=== PATIENT | male | born 1950 | race Caucasian/White ===

== ENCOUNTER → 2018-03-05 13:04 | Outpatient (CLI) | payer MEDICARE, SELFPAY ==
[2018-03-05 13:55] LABS: PSA,Total - Annual Screen 1.61 ng/mL (0.00-4.00)
== END ==
PROVIDERS: Family Provider Family Medicine; PCP Family Medicine; Visit Provider Nurse Practitioner Adult Health
DX: Z12.5 Encounter for screening for malignant neoplasm of prostate (principal); R97.20 Elevated prostate specific antigen [PSA]
CPT/HCPCS: 36415; 84153; G0103

== ENCOUNTER 2018-11-14 01:52 | Emergency (ER) | payer MEDICARE, SELFPAY ==
[2018-11-14 01:53] VITALS: BP 188/107; PULSE 59; RESP 18; TEMP 36.1; O2SAT 98; BMI 49.5
--- NOTE | 2018-11-14 02:19 | CT_ITS ---
STUDY: CT ABDOMEN AND PELVIS WITHOUT CONTRAST REASON FOR EXAM: Male, 68 years old. Flank pain and dysuria RADIATION DOSAGE (If Supplied By Facility): CTDIvol = ( 23.74 ) mGy, DLP = ( 1334.72 ) mGycm TECHNIQUE: Transaxial images were obtained from the dome of the diaphragm to the symphysis pubis without oral contrast, and without intravenous contrast. Sagittal and coronal images were reconstructed. Individualized dose optimization techniques were used for this CT. COMPARISON: None. FINDINGS: Evaluation is limited by lack of IV and oral contrast. The visualized lung bases are unremarkable. The visualized portions of the heart are within normal limits. Normal unenhanced liver. Normal unenhanced gallbladder and extrahepatic biliary system. Normal unenhanced spleen. Normal unenhanced pancreas. Normal unenhanced bilateral adrenal glands. There is mild right hydroureter and hydronephrosis with perinephric fatty stranding. There is a 5 mm right UVJ stone. 2 mm nonobstructing left nephrolithiasis. There is a small hiatal hernia. Evidence of prior gastric surgery. Normal unenhanced small intestine. There are multiple colonic diverticula consistent with diverticulosis. There is non-visualization of the appendix. There is diffuse atherosclerotic calcification of the abdominal aorta, without a demonstrated aneurysm. Cannot evaluate for dissection due to lack of IV contrast. Nonspecific subcentimeter short axis mesenteric and retroperitoneal lymph nodes. Bladder is decompressed limiting its evaluation. 5 mm stone at the right UVJ. Prostate is enlarged. Correlate with PSA values and physical exam nonemergent basis. Prostate radiotherapy beads. Small bilateral fat-containing inguinal hernias. There are diffuse degenerative changes of the visualized lumbar spine. Neural foraminal narrowing greatest at L5-S1. Moderate at this level. CT/Abdomen/Pelvis without Cont IMPRESSION: Right UVJ 5 mm stone with mild hydroureter, hydronephrosis and perinephric fatty stranding. Evidence of prior gastric surgery. No CT evidence for diverticulitis. 2 mm nonobstructing left nephrolithiasis. Other findings as discussed above. Electronically Signed: Diallo Hoff, at 3:50 EDT Tel , Service support ,
--- NOTE | 2018-11-14 02:19 | ED.VIS.GEN ---
History of Present Illness Chief Complaint: Flank Pain Informant: Patient Narrative: Stated he awoke with right flank pain at 10 PM. Sharp stabbing pain in his right flank rating around to the front. He is never had a kidney stone. No blood in his urine. He had similar pain yesterday and it went away. He is never had anything like this before. He tried to urinate and have a bowel movement tonight but could not. His last urination was this evening before dinner. Had a normal bowel movement yesterday. Comes in for further evaluation. Associated nausea with one episode of emesis. - Past Medical History (1) Status post total left knee replacement Status: Acute (2) Arthritis Status: Chronic (3) Morbid obesity with BMI of 40.0-44.9, adult Status: Chronic (4) RIKY (obstructive sleep apnea) Status: Chronic Past Medical History - Allergies and Home Meds Allergies/Adverse Reactions: Allergies No Known Allergies Allergy (Verified 11/14/18 01:56) Primary Care Physician: Jaiden Melton MD [Primary Care Provider] - Surgical History: cataract, herniorrhaphy, total hip arthroplasty, tonsillectomy, - - bariatric surgery 2013 Smoking Status: Never smoker Alcohol: None Drugs: None - Family History Maternal Family History: Reports: No pertinent history Paternal Family History: Reports: No pertinent history Review of Systems General: Denies: Chills, Fever, Sweats Eyes: Denies: Visual changes - bilaterally, Diplopia ENT: Denies: Rhinorrhea, Sore throat Cardiovascular: Denies: Chest pain, Palpitations Respiratory: Denies: Dyspnea, Cough, Dyspnea on exertion Gastrointestinal: Reports: Nausea, Vomiting. Denies: Abdominal pain, Diarrhea, Melena, Hematochezia Genitourinary: Denies: Dysuria, Hematuria, Frequency Musculoskeletal: Reports: Back pain. Denies: Extremity Pain Skin: Denies: Rash, Wounds Neurological: Denies: Headache, Weakness, Numbness Physical Exam Vital Signs/Narrative: Vital Signs Temp Pulse Resp BP Pulse Ox 11/14/18 01:53 97.0 F L 59 L 18 188/107 H 98 General: Well nourished, Well developed, No Acute Distress Head: Normocephalic, Atraumatic Eyes: Perrl, EOMI ENT: Moist mucous membranes, No rhinorrhea Neck: Supple, Nontender Cardiovascular: Regular rate, Regular rhythm, No murmurs Respiratory: No distress, CTA bilaterally, Chest nontender Abdomen: Soft, Nontender, Nondistended, Normal bowel sounds Back: Nontender, Normal Inspection Extremities: Nontender, No edema Skin: Normal color, No rash Neurological: Alert, Oriented x3, Cranial nerves II-XII grossly intact, Normal Strength, Normal Sensation Psychological: Normal affect, Normal Mood Diagnostic/Tx/Re-eval - Medical Decision Making Patient given IV fluids, Zofran Toradol morphine. Lab work and CT flank obtained lab work shows no acute abnormalities other than blood in his urine. CT shows a 5 mm kidney stone with mid ureter location in mild hydro-. Patient given a second dose of morphine and his pain is much better. He will be discharged to follow-up with Dr. Horvath he will be given Flomax, Percocet, Zofran. He will return if he worsens. He should pass this given the fact that is 5 mm ED Disposition - Plan for ED Patient: Disposition: EMPLOYEE [facility] - NA Diagnosis: Kidney stone on right side Instructions: ED Stone Renal W Colic Prescriptions: Oxycodone HCl/Acetaminophen [Percocet 5/325] 1 - 2 tab PO Q6H PRN PRN 3 Days #12 tab PRN Reason: Pain Ondansetron [Zofran Odt] 4 mg PO Q8H PRN PRN #10 tab PRN Reason: Nausea Tamsulosin HCl [Flomax] 0.4 mg PO DAILY #7 cap Referrals: Arash Horvath MD [STAFF PHYSICIAN] -
[2018-11-14 02:36] LABS: Bacteria 0 SEEN /hpf (None Seen); Mucous, Urine 0 SEEN /hpf (<or=2+)
[2018-11-14 02:37] LABS: Color, Urine Yellow (Yellow); Glucose, Dipstick Normal (Normal); Ketone-Dipstick Negative (Negative); Leukocyte Esterase-Dipstick 100 /ul (Negative); Nitrite-Dipstick Negative (Negative); Occult Blood-Urine 250 /ul (Negative); Protein-Dipstick 15 mg/dl (Negative); Specific Gravity, Urine 1.015 (1.002-1.030); Urine Bilirubin Dipstick Negative (Negative); Urine Clarity Clear (Clear); Urine Urobilinogen Normal (Normal)
[2018-11-14 02:40] LABS: Absolute Lymphocyte Count 1.44 X10^3/ul (0.83-4.51); Absolute Neutrophil Count 5.9 X10^3/uL (2.0-7.7); Basophil# 0.04 X10^3/uL; Basophil% 0.5 % (0-1); Eosinophil# 0.26 X10^3/uL; Hematocrit 43.7 % (40-54); Hemoglobin 14.5 g/dl (13.0-16.5); Lymphocyte # 1.44 X10^3/ul (4.0); Lymphocyte % 16.6 % (19-41); Mean Corp Hgb Conc 33.2 g/gl (32-36); Mean Corpuscular Hgb 29.2 pg (27.0-32.0); Mean Corpuscular Volume 87.9 fL (80-94); Mean Platelet Vol. 9.9 fl (6.2-12.0); Monocyte# 1.04 X10^3/uL; Neutrophil # 5.91 X10^3/uL (2.7-7.7); Neutrophil % 67.8 % (47-70); Platelet Count 227 K/mm3 (150-450); RBC Distribution Width CV 14.1 % (11.6-14.6); Red Blood Count 4.97 M/mm3 (4.6-6.2); White Blood Count 8.7 K/mm3 (4.4-11.0)
[2018-11-14 02:41] LABS: POSITIVE COUNT NO; POSITIVE DIFFERENTIAL NO; POSITIVE MORPHOLOGY NO
[2018-11-14] MEDS: 0.9% Normal Saline 1,000 ML 250 ML IV (02:41)
[2018-11-14] MEDS: Ketorolac 30 MG/ML Syringe IV (02:42)
[2018-11-14] MEDS: Ondansetron 4 MG/2 ML Vial IV (02:42)
[2018-11-14 02:43] LABS: Red Blood Cells-Urine 0-5 SEEN /hpf (0-5); Squamous Epithelial Cells - UA 0-5 SEEN /hpf (0-5); White Blood Cells 5-10 SEEN /hpf (0-5)
[2018-11-14] MEDS: Morphine 4 MG/ML Syringe IV ×2 (02:44→04:02)
[2018-11-14 02:48] LABS: Anion Gap 8 (5-15); BUN 14 mg/dL (7-18); BUN/Creat Ratio 11.6 RATIO (10-20); Calcium,Total 8.6 mg/dL (8.5-10.1); Chloride 111 mmol/L (98-107); Creatinine, Serum 1.21 mg/dL (0.70-1.30); EST Glomerular Filtration Rate 64 mL/min (>60); Est Glom Filt Rate - Afr Amer 77 mL/min (>60); Estimated Creatinine Clearance 63.96 ml/min; Glucose 128 mg/dL (74-106); Sodium Level 143 mmol/L (136-145)
[2018-11-14] MEDS: HYDROcodone Bitartrate/Apap 5/325 Tablet PO (04:42)
[2018-11-14 04:48] VITALS: BP 123/88; PULSE 76; RESP 22; O2SAT 97
--- NOTE | 2018-11-14 04:48 | ED.RN ---
THIS NURSE REVIEWED D/C INSTRUCTIONS WITH PT AND VISITOR. PT VERBALIZED UNDERSTANDING OF INSTRUCTIONS. IV D/C. IV CATHETER INTACT. PT TOLERATED WELL. PT DENIES FURTHER NEEDS OR QUESTIONS AT THIS TIME. PT AMBULATES FROM ROOM ON OWN WITHOUT ASSISTANCE FROM STAFF
== END 2018-11-14 04:49 | disposition home or self-care (01) ==
PROVIDERS: Emergency Provider Emergency Medicine; Family Provider Family Medicine; PCP Family Medicine
DX: N13.2 Hydronephrosis with renal and ureteral calculous obstruction (principal); E66.01 Morbid (severe) obesity due to excess calories; Z68.42 Body mass index [BMI] 45.0-49.9, adult; Z98.84 Bariatric surgery status
CPT/HCPCS: 74176; 80048; 81001; 85025; 96361; 96374; 96375; 96376; 99282; J7030; A4216; J2405

== ENCOUNTER → 2020-03-22 | Outpatient (CLI) | payer MEDICARE, SELFPAY ==
[2020-03-22 14:46] LABS: PSA,Total- Diagnostic 0.99 ng/mL (0.0-4.0)
== END | disposition home or self-care (01) ==
LOC: LAB 14:13
PROVIDERS: PCP Family Medicine; Referring Provider Urology; Visit Provider Urology
DX: C61 Malignant neoplasm of prostate (principal)
CPT/HCPCS: 36415; 84153

== ENCOUNTER 2020-04-06 09:32 | Outpatient (RCR) | payer MEDICARE, SELFPAY ==
[2020-04-06 10:15] VITALS: BP 184/102; PULSE 73; RESP 18; TEMP 36.2; BMI 49.5
--- NOTE | 2020-04-06 12:24 | PCM.CONHBO ---
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 Status: Acute Current Visit: Yes Code(s): L59.8 - Other specified disorders of the skin and subcutaneous tissue related to radiation (2) Prostate cancer Status: Acute Current Visit: Yes Code(s): C61 - Malignant neoplasm of prostate (3) Fecal incontinence due to anorectal disorder Status: Acute Current Visit: Yes Code(s): R15.9 - Full incontinence of feces; K62.89 - Other specified diseases of anus and rectum (4) Late effect of radiation Status: Acute Current Visit: Yes Code(s): T66.XXXS - Radiation sickness, unspecified, sequela History of Present Illness Date of Service: 04/06/20 Presenting Chief Complaint: Here for consultation for hyperbaric chamber for his 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 Patient received 44 treatments of radiation therapy to his prostate 5 years ago and now has developed incontinence of stool and sometimes bleeds. Patient is hesitant for HBO only because he has claustrophobia type tendencies but is willing to try Past Medical History Chronic Problems RIKY (obstructive sleep apnea) (Chronic) Arthritis (Chronic) Morbid obesity with BMI of 40.0-44.9, adult (Chronic) Allergies/Adverse Reactions: Allergies No Known Allergies Allergy (Verified 11/14/18 01:56) Home Medications: Ambulatory Orders Medication Instructions Recorded Acetaminophen [Tylenol Extra 500 mg PO Q6H PRN PRN 04/06/20 Strength] Famotidine/Ca Carb/Mag Hydrox 1 ea PO DAILY PRN PRN 04/06/20 [Pepcid Complete Tablet Chew] Maternal Family History: No pertinent history Paternal Family History: No pertinent history Smoking Status: Never smoker Review of Systems Constitutional: Denies: Chills, Fever Eyes: Denies: Blurred vision, Drainage, Pain HEENT: Denies: Difficulty Hearing, Difficulty Swallowing, Sore Throat, Visual Changes Cardiovascular: Denies: Chest Pain, Palpitations, Syncope Respiratory: Denies: Cough, Shortness of Breath Gastrointestinal: Denies: Abdominal Pain, Nausea, Vomiting Genitourinary: Denies: Dysuria, Frequency Musculoskeletal: Denies: Joint Pain, Muscle pain Skin: Denies: Jaundice, Rash Neurological: Denies: Balance problems, Change in Speech, Difficulty swallowing, Focal weakness Psychiatric: Denies: Anxiety, Depression Endocrine: Denies: Change in Body Habitus Hematologic/ Lymphatic: Denies: Adenopathy - Physical Exam Vital Signs Temp Pulse Resp BP 97.2 F L 73 18 184/102 H 04/06/20 10:15 04/06/20 10:15 04/06/20 10:15 04/06/20 10:15 General: Oriented x3, Cooperative, Well developed HEENT: Atraumatic, PERRLA Oral: Moist Mucosa Neck: Supple, No JVD Lungs: Clear to auscultation, Normal air movement Cardiovascular: Regular rate, Regular Rhythm Abdomen: Bowel Sounds Present, Soft, Non Tender, No Hepato-splenomegaly, Obese Extremities: No clubbing, No edema Skin: No rashes Musculoskeletal: No Tenderness to Palpation of Joints or Extremities Lymphatic: No Cervical, Supraclavicular, or Inguinal Adenopathy Neurological: Cranial nerves II-XII grossly intact, Neuro grossly intact Psych/Mental Status: Normal Affect, Appropriate, Alert and oriented to time, place, person, mood and affect Assessment/Plan Active Problems 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 Hyperbaric Oxygen Therapy would be an essential adjunct in the resolution and treatment of this patient's presenting problem. This patient has sufficient physiologic and psychological stamina to undergo the rigors of hyperbaric oxygen therapy. As such, I recommend the following: Hyperbaric Oxygen Treatments at 2.0 SD in 100% Oxygen for 90 minutes per treatment, for [] treatments. I have discussed the possible benefits of hyperbaric oxygen therapy with this patient. I have also presented and described the risks, including: air gas embolism, pneumothorax, central nervous system and pulmonary oxygen toxicity, flash pulmonary edema, hypoglycemia, reversible visual refractive changes, ear and sinus elyssa-trauma, and confinement anxiety. The patient has verbalized understanding of these risks, and is still wanting to undergo hyperbaric oxygen therapy. The patient understands the significant time and transportation commitment involved in daily treatments of up to two hours duration and has stated that they are willing to commit to this therapy. 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
== END 2020-04-06 23:59 ==
LOC: WC 09:32
PROVIDERS: PCP Family Medicine; Referring Provider Urology; Visit Provider Nurse Practitioner
DX: K62.89 Other specified diseases of anus and rectum (principal); K62.7 Radiation proctitis; G47.33 Obstructive sleep apnea (adult) (pediatric); E66.01 Morbid (severe) obesity due to excess calories; M19.90 Unspecified osteoarthritis, unspecified site; Z68.41 Body mass index [BMI] 40.0-44.9, adult; Z92.3 Personal history of irradiation
CPT/HCPCS: 99203; G0463

== ENCOUNTER → 2020-04-14 13:50 | Outpatient (RCR) | payer MEDICARE, SELFPAY ==
[2020-04-06 10:15] VITALS: BMI 49.5
--- NOTE | 2020-04-14 13:55 | RAD_ITS ---
HISTORY: hyperbonic treatments ADDITIONAL HISTORY: None provided. COMPARISON: None EXAMINATION/TECHNIQUE: XR Chest 2 Views Number of images including paperwork: 2 FINDINGS: LUNGS AND PLEURA: No consolidation, mass or pleural effusion. CARDIAC SILHOUETTE: Unremarkable. MEDIASTINUM AND ANMOL: Aortic calcification and tortuosity. UPPER ABDOMEN: Unremarkable. SKELETON AND SOFT TISSUES: No acute findings. Degenerative changes. OTHER DEVICES AND HARDWARE: None. RAD/Chest PA and Lateral IMPRESSION: No acute cardiopulmonary abnormality. at 2220 Reported and signed by: Gin Ho MD Electronically Signed: Gin Ho MD at 22:20 EDT Tel , Service support ,
--- NOTE | 2020-04-14 14:04 | EKG12_ITS ---
Test Reason : HYPERBARIS OXYGEN Blood Pressure : / mmHG Vent. Rate : 069 BPM Atrial Rate : 069 BPM P-R Int : 184 ms QRS Dur : 088 ms QT Int : 422 ms P-R-T Axes : 008 006 -18 degrees QTc Int : 452 ms Normal sinus rhythm Normal ECG Confirmed by DENISE JOHNSON, KENRICK ([id number]), international editorial producer GRACE PHILLIPS ([id number]) on 04/19/2020 8:11:22 AM Referred By: BILLY BUI Confirmed By:KNERICK WALKER MD
== END ==
LOC: RAD 13:50
PROVIDERS: PCP Family Medicine; Visit Provider Nurse Practitioner
DX: Z01.818 Encounter for other preprocedural examination (principal); K62.89 Other specified diseases of anus and rectum; K62.7 Radiation proctitis
CPT/HCPCS: 36415; 71046; 80053; 85025; 93005

== ENCOUNTER 2020-05-06 13:00 | Outpatient (RCR) | payer MEDICARE, SELFPAY ==
[2020-04-07 00:51] VITALS: BP 184/102; PULSE 73; RESP 18; TEMP 36.2
--- NOTE | 2020-04-13 10:34 | WC ---
Called [place] to get prior authorization for EKG. CPT code provided and since Susan is considered a non-participating member with his insurance, I notified Carmella Love NP regarding this matter who was willing to vouch for this and be the providing clinician for the EKG order. Her NPI number was given the the insurance company for approval. There was no prior authorization (reference # [id number]) needed as long as patient received EKG at [facility]. Patient was called and told to proceed with the EKG, labs and chest xray at [facility] so the results can get faxed to his insurance company to start the pre-approval for HBOT. Patient verbalized understanding.
[2020-04-14 14:13] LABS: Absolute Lymphocyte Count 1.29 X10^3/uL (0.83-4.51); Absolute Neutrophil Count 5.8 X10^3/uL (2.0-7.7); Basophil# 0.05 X10^3/uL; Basophil% 0.6 % (0-1); Eosinophil# 0.27 X10^3/uL; Eosinophils% 3.3 % (0-5); Hematocrit 42.4 % (40-54); Hemoglobin 13.6 g/dL (13.0-16.5); Lymphocyte # 1.29 X10^3/ul (4.0); Lymphocyte % 15.8 % (19-41); Mean Corp Hgb Conc 32.1 g/dL (32-36); Mean Corpuscular Hgb 28.4 pg (27.0-32.0); Mean Corpuscular Volume 88.5 fL (80-94); Mean Platelet Vol. 9.5 fl (6.2-12.0); Monocyte# 0.81 X10^3/uL; Monocyte% 9.9 % (0-10); NRBC Flagged by Analyzer 0 % (0-5); Neutrophil # 5.75 X10^3/uL (2.7-7.7); Neutrophil % 70.2 % (47-70); Platelet Count 254 K/mm3 (150-450); RBC Distribution Width CV 13.8 % (11.6-14.6); RBC Distribution Width SD 44.8 fl (35.1-43.9); Red Blood Count 4.79 M/mm3 (4.6-6.2); White Blood Count 8.2 K/mm3 (4.4-11.0)
[2020-04-14 14:37] LABS: AST(SGOT) 25 U/L (15-37); Alanine Aminotransfer ALT/SGPT 25 U/L (16-61); Albumin, Serum 3.3 g/dL (3.2-5.0); Alkaline Phosphatase 69 U/L (45-117); Anion Gap 6 (5-15); BUN 11 mg/dL (7-18); BUN/Creat Ratio 13.3 RATIO (10-20); Calcium,Total 8.4 mg/dL (8.5-10.1); Chloride 110 mmol/L (98-107); Creatinine, Serum 0.82 mg/dL (0.70-1.30); EST Glomerular Filtration Rate 99 mL/min (>60); Est Glom Filt Rate - Afr Amer 119 mL/min (>60); Globulin 3.3 g/dL (2.2-4.2); Glucose 96 mg/dL (74-106); Potassium 3.4 mmol/L (3.5-5.1); Protein, Total 6.6 g/dL (6.4-8.2); Sodium Level 143 mmol/L (136-145)
[2020-05-02 14:46] VITALS: BP 155/97; BP 174/118; PULSE 57; PULSE 76; RESP 16; RESP 18; TEMP 36.3; TEMP 36.4
--- NOTE | 2020-05-02 14:58 | PCM.HBO.PN ---
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 Progress: Today's session represents the 1st session of hyperbaric oxygen therapy, of an expected 30 such treatments. Tolerance of hyperbaric oxygen therapy: Hyperbaric oxygen therapy was administered as per the facility's protocol. Hyperbaric oxygen therapy was administered for 90 minutes at 2 sweta, with no air breaks. Upon emergence from the hyperbaric oxygen chamber the patient had no complaints or complications. The patient's vital signs remained stable. The patient was discharged in good condition. His pre-and post- HBO blood sugars are recorded elsewhere. Past Medical History Chronic Problems RIKY (obstructive sleep apnea) (Chronic) Arthritis (Chronic) Morbid obesity with BMI of 40.0-44.9, adult (Chronic) Allergies/Adverse Reactions: Allergies No Known Allergies Allergy (Verified 11/14/18 01:56) Home Medications: Ambulatory Orders Medication Instructions Recorded Acetaminophen [Tylenol Extra 500 mg PO Q6H PRN PRN 04/06/20 Strength] Famotidine/Ca Carb/Mag Hydrox 1 ea PO DAILY PRN PRN 04/06/20 [Pepcid Complete Tablet Chew] Maternal Family History: No pertinent history Paternal Family History: No pertinent history Smoking Status: Never smoker Physical Exam Vital Signs Temp Pulse Resp BP 97.6 F L 76 18 174/118 H 05/02/20 14:46 05/02/20 14:46 05/02/20 14:46 05/02/20 14:46 General: Alert, Oriented x3, Cooperative, No apparent distress HEENT: Atraumatic, Normocephalic, TM's Clear Lungs: Clear to auscultation, Normal air movement, No rhonchi, No wheeze, No rales Cardiovascular: Regular rate, Regular Rhythm Psych/Mental Status: Normal Affect, Appropriate Assessment/Plan The patient appears to be tolerating hyperbaric oxygen therapy well, which will be continued as per the patient's medical plan. Treatment Course Number Number of HBO Treatments 30 Ordered Treatment Course Number 1 Treatment # 1 Chamber # [id number] Chamber Type Monoplace Other - Detail Soft Tissue Radionecrosis ( Yes: Rectum specify site in comment) Treatment Plan SD (Atmospheric Absolute) 2 Number of Minutes 90 Number of Air Breaks 0
--- NOTE | 2020-05-03 13:07 | PCM.HBO.PN ---
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 Progress: Today's session represents the 2nd session of hyperbaric oxygen therapy, of an expected 30 such treatments. Tolerance of hyperbaric oxygen therapy: Hyperbaric oxygen therapy was administered as per the facility's protocol. Hyperbaric oxygen therapy was administered for 90 minutes at 2 sweta, with no air breaks. Upon emergence from the hyperbaric oxygen chamber the patient had no complaints or complications. The patient's vital signs remained stable. The patient was discharged in good condition. His pre-and post- HBO blood sugars are recorded elsewhere. Past Medical History Chronic Problems RIKY (obstructive sleep apnea) (Chronic) Arthritis (Chronic) Morbid obesity with BMI of 40.0-44.9, adult (Chronic) Allergies/Adverse Reactions: Allergies No Known Allergies Allergy (Verified 11/14/18 01:56) Home Medications: Ambulatory Orders Medication Instructions Recorded Acetaminophen [Tylenol Extra 500 mg PO Q6H PRN PRN 04/06/20 Strength] Famotidine/Ca Carb/Mag Hydrox 1 ea PO DAILY PRN PRN 04/06/20 [Pepcid Complete Tablet Chew] Maternal Family History: No pertinent history Paternal Family History: No pertinent history Smoking Status: Never smoker Physical Exam Vital Signs Temp Pulse Resp BP 97.6 F L 76 18 174/118 H 05/02/20 14:46 05/02/20 14:46 05/02/20 14:46 05/02/20 14:46 General: Alert, Oriented x3, Cooperative HEENT: Atraumatic, TM's Clear Lungs: Clear to auscultation, Normal air movement Cardiovascular: Regular rate, Regular Rhythm Psych/Mental Status: Normal Affect, Alert and oriented to time, place, person, mood and affect Assessment/Plan The patient appears to be tolerating hyperbaric oxygen therapy well, which will be continued as per the patient's medical plan. Treatment Course Number Number of HBO Treatments 30 Ordered Treatment Course Number 1 Treatment # 1 Chamber # [id number] Chamber Type Monoplace Other - Detail Soft Tissue Radionecrosis ( Yes: Rectum specify site in comment) Treatment Plan SD (Atmospheric Absolute) 2 Number of Minutes 90 Number of Air Breaks 0 [id number]
[2020-05-03 15:41] VITALS: BP 154/96; BP 183/99; PULSE 55; PULSE 73; RESP 16; TEMP 35.9; TEMP 36.4
[2020-05-05 14:09] VITALS: BP 172/105; BP 176/103; PULSE 70; RESP 18; TEMP 36.1
--- NOTE | 2020-05-05 15:44 | PCM.HBO.PN ---
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 Progress: Today's session represents the 3rd session of hyperbaric oxygen therapy, of an expected 30 such treatments. Tolerance of hyperbaric oxygen therapy: Hyperbaric oxygen therapy was administered as per the facility's protocol. Hyperbaric oxygen therapy was administered for 90 minutes at 2 sweta, with no air breaks. Upon emergence from the hyperbaric oxygen chamber the patient had no complaints or complications. The patient's vital signs remained stable. The patient was discharged in good condition. His pre-and post- HBO blood sugars are recorded elsewhere. Past Medical History Chronic Problems RIKY (obstructive sleep apnea) (Chronic) Arthritis (Chronic) Morbid obesity with BMI of 40.0-44.9, adult (Chronic) Allergies/Adverse Reactions: Allergies No Known Allergies Allergy (Verified 11/14/18 01:56) Home Medications: Ambulatory Orders Medication Instructions Recorded Acetaminophen [Tylenol Extra 500 mg PO Q6H PRN PRN 04/06/20 Strength] Famotidine/Ca Carb/Mag Hydrox 1 ea PO DAILY PRN PRN 04/06/20 [Pepcid Complete Tablet Chew] Maternal Family History: No pertinent history Paternal Family History: No pertinent history Smoking Status: Never smoker Physical Exam Vital Signs Temp Pulse Resp BP 96.9 F L 70 18 176/103 H 05/05/20 14:09 05/05/20 14:09 05/05/20 14:09 05/05/20 14:09 General: Alert, Oriented x3, Cooperative, No apparent distress, Well developed, Well nourished HEENT: Atraumatic, PERRLA, EOMI, Normocephalic Lungs: Normal air movement Psych/Mental Status: Normal Affect, Appropriate, Alert and oriented to time, place, person, mood and affect Assessment/Plan The patient appears to be tolerating hyperbaric oxygen therapy well, which will be continued as per the patient's medical plan. Treatment Course Number Number of HBO Treatments 30 Ordered Treatment Course Number 1 Treatment # 2 Chamber # 2 Chamber Type Monoplace Other - Detail Soft Tissue Radionecrosis ( Rectum specify site in comment) Treatment Plan SD (Atmospheric Absolute) 2 Number of Minutes 90 Number of Air Breaks 0
--- NOTE | 2020-05-06 14:21 | PCM.HBO.PN ---
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 Progress: Today's session represents the 4th session of hyperbaric oxygen therapy, of an expected 30 such treatments. Tolerance of hyperbaric oxygen therapy: Hyperbaric oxygen therapy was administered as per the facility's protocol. Hyperbaric oxygen therapy was administered for 90 minutes at 2 sweta, with no air breaks. Upon emergence from the hyperbaric oxygen chamber the patient had no complaints or complications. The patient's vital signs remained stable. The patient was discharged in good condition. His pre-and post- HBO blood sugars are recorded elsewhere. Past Medical History Chronic Problems RIKY (obstructive sleep apnea) (Chronic) Arthritis (Chronic) Morbid obesity with BMI of 40.0-44.9, adult (Chronic) Allergies/Adverse Reactions: Allergies No Known Allergies Allergy (Verified 11/14/18 01:56) Home Medications: Ambulatory Orders Medication Instructions Recorded Acetaminophen [Tylenol Extra 500 mg PO Q6H PRN PRN 04/06/20 Strength] Famotidine/Ca Carb/Mag Hydrox 1 ea PO DAILY PRN PRN 04/06/20 [Pepcid Complete Tablet Chew] Maternal Family History: No pertinent history Paternal Family History: No pertinent history Smoking Status: Never smoker Physical Exam Vital Signs Temp Pulse Resp BP 96.9 F L 70 18 176/103 H 05/05/20 14:09 05/05/20 14:09 05/05/20 14:09 05/05/20 14:09 General: Alert, Cooperative, No apparent distress HEENT: Atraumatic, Normocephalic, TM's Clear Lungs: Clear to auscultation, Normal air movement, No rhonchi, No wheeze, No rales Cardiovascular: Regular rate, Regular Rhythm Psych/Mental Status: Normal Affect, Appropriate Assessment/Plan The patient appears to be tolerating hyperbaric oxygen therapy well, which will be continued as per the patient's medical plan. Treatment Course Number Number of HBO Treatments 30 Ordered Treatment Course Number 1 Treatment # 2 Chamber # 2 Chamber Type Monoplace Other - Detail Soft Tissue Radionecrosis ( Rectum specify site in comment) Treatment Plan SD (Atmospheric Absolute) 2 Number of Minutes 90 Number of Air Breaks 0
[2020-05-06 17:28] VITALS: BP 140/85; BP 148/95; PULSE 55; PULSE 67; RESP 18; TEMP 36.1; TEMP 36.4
== END 2020-05-07 23:59 ==
LOC: WC 13:00
PROVIDERS: Nurse Practitioner; PCP Family Medicine; Referring Provider Urology; Visit Provider Family Medicine
DX: L59.8 Other specified disorders of the skin and subcutaneous tissue related to radiation (principal); Y84.2 Radiological procedure and radiotherapy as the cause of abnormal reaction of the patient, or of later complication, without mention of misadventure at the time of the procedure; M19.90 Unspecified osteoarthritis, unspecified site; E66.01 Morbid (severe) obesity due to excess calories; G47.33 Obstructive sleep apnea (adult) (pediatric); Z68.41 Body mass index [BMI] 40.0-44.9, adult
CPT/HCPCS: 36415; 80053; 85025; 99183; G0277

== ENCOUNTER 2020-06-06 08:00 | Outpatient (RCR) | payer MEDICARE, SELFPAY ==
[2020-05-08 00:35] VITALS: BP 140/85; PULSE 67; RESP 18; TEMP 36.1
--- NOTE | 2020-05-09 10:14 | PCM.HBO.PN ---
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 Progress: Today's session represents the 5th session of hyperbaric oxygen therapy, of an expected 30 such treatments. Tolerance of hyperbaric oxygen therapy: Hyperbaric oxygen therapy was administered as per the facility's protocol. Hyperbaric oxygen therapy was administered for 90 minutes at 2 sweta, with no air breaks. Upon emergence from the hyperbaric oxygen chamber the patient had no complaints or complications. The patient's vital signs remained stable. The patient was discharged in good condition. His pre-and post- HBO blood sugars are recorded elsewhere. Past Medical History Chronic Problems RIKY (obstructive sleep apnea) (Chronic) Arthritis (Chronic) Morbid obesity with BMI of 40.0-44.9, adult (Chronic) Allergies/Adverse Reactions: Allergies No Known Allergies Allergy (Verified 11/14/18 01:56) Home Medications: Ambulatory Orders Medication Instructions Recorded Acetaminophen [Tylenol Extra 500 mg PO Q6H PRN PRN 04/06/20 Strength] Famotidine/Ca Carb/Mag Hydrox 1 ea PO DAILY PRN PRN 04/06/20 [Pepcid Complete Tablet Chew] Maternal Family History: No pertinent history Paternal Family History: No pertinent history Smoking Status: Never smoker Physical Exam Vital Signs Temp Pulse Resp BP 96.9 F L 67 18 140/85 H 05/08/20 00:35 05/08/20 00:35 05/08/20 00:35 05/08/20 00:35 General: Alert, Oriented x3, Cooperative, No apparent distress HEENT: Atraumatic, TM's Clear Lungs: Clear to auscultation, Normal air movement Cardiovascular: Regular rate, Regular Rhythm Psych/Mental Status: Normal Affect, Appropriate, Alert and oriented to time, place, person, mood and affect Assessment/Plan Treatment Course Number Treatment Course Number 1 Treatment # 5 Other - Detail Soft Tissue Radionecrosis ( Yes specify site in comment)
[2020-05-09 12:49] VITALS: BP 151/91; BP 168/101; PULSE 51; PULSE 64; RESP 16; RESP 18; TEMP 35.8; TEMP 36
[2020-05-10 10:23] VITALS: BP 133/78; BP 160/89; PULSE 54; PULSE 66; RESP 16; TEMP 35.8; TEMP 36.1
--- NOTE | 2020-05-10 14:27 | PCM.HBO.PN ---
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 Progress: Today's session represents the 6th session of hyperbaric oxygen therapy, of an expected 30 such treatments. Tolerance of hyperbaric oxygen therapy: Hyperbaric oxygen therapy was administered as per the facility's protocol. Hyperbaric oxygen therapy was administered for 90 minutes at 2 sweta, with no air breaks. Upon emergence from the hyperbaric oxygen chamber the patient had no complaints or complications. The patient's vital signs remained stable. The patient was discharged in good condition. His pre-and post- HBO blood sugars are recorded elsewhere. Past Medical History Chronic Problems RIKY (obstructive sleep apnea) (Chronic) Arthritis (Chronic) Morbid obesity with BMI of 40.0-44.9, adult (Chronic) Allergies/Adverse Reactions: Allergies No Known Allergies Allergy (Verified 11/14/18 01:56) Home Medications: Ambulatory Orders Medication Instructions Recorded Acetaminophen [Tylenol Extra 500 mg PO Q6H PRN PRN 04/06/20 Strength] Famotidine/Ca Carb/Mag Hydrox 1 ea PO DAILY PRN PRN 04/06/20 [Pepcid Complete Tablet Chew] Maternal Family History: No pertinent history Paternal Family History: No pertinent history Smoking Status: Never smoker Physical Exam Vital Signs Temp Pulse Resp BP 96.5 F L 66 16 160/89 H 05/10/20 10:23 05/10/20 10:23 05/10/20 10:23 05/10/20 10:23 General: Alert, Oriented x3, Cooperative, No apparent distress, Well developed, Well nourished HEENT: Atraumatic, PERRLA, EOMI, Normocephalic Lungs: Normal air movement Psych/Mental Status: Normal Affect, Appropriate, Alert and oriented to time, place, person, mood and affect Assessment/Plan The patient appears to be tolerating hyperbaric oxygen therapy well, which will be continued as per the patient's medical plan. Treatment Course Number Number of HBO Treatments 30 Ordered Treatment Course Number 1 Treatment # 6 Chamber # 2 Chamber Type Monoplace Other - Detail Soft Tissue Radionecrosis ( Yes: rectum specify site in comment) Treatment Plan SD (Atmospheric Absolute) 2 Number of Minutes 90 Number of Air Breaks 0
[2020-05-11 10:29] VITALS: BP 151/86; BP 158/77; PULSE 53; PULSE 66; RESP 18; TEMP 36.1; TEMP 36.4
--- NOTE | 2020-05-11 12:13 | PCM.HBO.PN ---
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 Progress: Today's session represents the 7th session of hyperbaric oxygen therapy, of an expected 30 such treatments. Tolerance of hyperbaric oxygen therapy: Hyperbaric oxygen therapy was administered as per the facility's protocol. Hyperbaric oxygen therapy was administered for 90 minutes at 2 sweta, with no air breaks. Upon emergence from the hyperbaric oxygen chamber the patient had no complaints or complications. The patient's vital signs remained stable. The patient was discharged in good condition. His pre-and post- HBO blood sugars are recorded elsewhere. Past Medical History Chronic Problems RIKY (obstructive sleep apnea) (Chronic) Arthritis (Chronic) Morbid obesity with BMI of 40.0-44.9, adult (Chronic) Allergies/Adverse Reactions: Allergies No Known Allergies Allergy (Verified 11/14/18 01:56) Home Medications: Ambulatory Orders Medication Instructions Recorded Acetaminophen [Tylenol Extra 500 mg PO Q6H PRN PRN 04/06/20 Strength] Famotidine/Ca Carb/Mag Hydrox 1 ea PO DAILY PRN PRN 04/06/20 [Pepcid Complete Tablet Chew] Maternal Family History: No pertinent history Paternal Family History: No pertinent history Smoking Status: Never smoker Physical Exam Vital Signs Temp Pulse Resp BP 97.0 F L 66 18 158/77 H 05/11/20 10:29 05/11/20 10:29 05/11/20 10:29 05/11/20 10:29 Assessment/Plan The patient appears to be tolerating hyperbaric oxygen therapy well, which will be continued as per the patient's medical plan. Treatment Course Number Number of HBO Treatments 30 Ordered Treatment Course Number 1 Treatment # 7 Chamber # [id number] Chamber Type Monoplace Other - Detail Soft Tissue Radionecrosis ( Yes specify site in comment) Treatment Plan SD (Atmospheric Absolute) 2.0 Number of Minutes 90 Number of Air Breaks 0
[2020-05-12 08:32] VITALS: BP 168/93; BP 175/97; PULSE 55; PULSE 63; RESP 16; RESP 18; TEMP 35.5; TEMP 36
--- NOTE | 2020-05-12 13:08 | PCM.HBO.PN ---
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 Progress: Today's session represents the 8th session of hyperbaric oxygen therapy, of an expected 30 such treatments. Tolerance of hyperbaric oxygen therapy: Hyperbaric oxygen therapy was administered as per the facility's protocol. Hyperbaric oxygen therapy was administered for 90 minutes at 2 sweta, with no air breaks. Upon emergence from the hyperbaric oxygen chamber the patient had no complaints or complications. The patient's vital signs remained stable. The patient was discharged in good condition. His pre-and post- HBO blood sugars are recorded elsewhere. Past Medical History Chronic Problems RIKY (obstructive sleep apnea) (Chronic) Arthritis (Chronic) Morbid obesity with BMI of 40.0-44.9, adult (Chronic) Allergies/Adverse Reactions: Allergies No Known Allergies Allergy (Verified 11/14/18 01:56) Home Medications: Ambulatory Orders Medication Instructions Recorded Acetaminophen [Tylenol Extra 500 mg PO Q6H PRN PRN 04/06/20 Strength] Famotidine/Ca Carb/Mag Hydrox 1 ea PO DAILY PRN PRN 04/06/20 [Pepcid Complete Tablet Chew] Maternal Family History: No pertinent history Paternal Family History: No pertinent history Smoking Status: Never smoker Physical Exam Vital Signs Temp Pulse Resp BP 96 F L 63 18 175/97 H 05/12/20 08:32 05/12/20 08:32 05/12/20 08:32 05/12/20 08:32 General: Alert, Oriented x3, Cooperative, No apparent distress HEENT: Atraumatic, Normocephalic Lungs: Normal air movement Psych/Mental Status: Normal Affect Assessment/Plan The patient appears to be tolerating hyperbaric oxygen therapy well, which will be continued as per the patient's medical plan. Treatment Course Number Number of HBO Treatments 30 Ordered Treatment Course Number 1 Treatment # 8 Chamber # [id number] Chamber Type Monoplace Other - Detail Soft Tissue Radionecrosis ( Yes specify site in comment) Treatment Plan SD (Atmospheric Absolute) 2 Number of Minutes 90 Number of Air Breaks 0 HBO Supervision
[2020-05-13 10:29] VITALS: BP 148/74; BP 153/86; PULSE 51; PULSE 62; RESP 18; TEMP 35.9; TEMP 36.1
--- NOTE | 2020-05-13 10:38 | PCM.HBO.PN ---
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 Progress: Today's session represents the 9th session of hyperbaric oxygen therapy, of an expected 30 such treatments. Tolerance of hyperbaric oxygen therapy: Hyperbaric oxygen therapy was administered as per the facility's protocol. Hyperbaric oxygen therapy was administered for 90 minutes at 2 sweta, with no air breaks. Upon emergence from the hyperbaric oxygen chamber the patient had no complaints or complications. The patient's vital signs remained stable. The patient was discharged in good condition. His pre-and post- HBO blood sugars are recorded elsewhere. Past Medical History Chronic Problems RIKY (obstructive sleep apnea) (Chronic) Arthritis (Chronic) Morbid obesity with BMI of 40.0-44.9, adult (Chronic) Allergies/Adverse Reactions: Allergies No Known Allergies Allergy (Verified 11/14/18 01:56) Home Medications: Ambulatory Orders Medication Instructions Recorded Acetaminophen [Tylenol Extra 500 mg PO Q6H PRN PRN 04/06/20 Strength] Famotidine/Ca Carb/Mag Hydrox 1 ea PO DAILY PRN PRN 04/06/20 [Pepcid Complete Tablet Chew] Maternal Family History: No pertinent history Paternal Family History: No pertinent history Smoking Status: Never smoker Physical Exam Vital Signs Temp Pulse Resp BP 96.7 F L 62 18 153/86 H 05/13/20 10:29 05/13/20 10:29 05/13/20 10:29 05/13/20 10:29 General: Alert, Oriented x3, Cooperative, No apparent distress Psych/Mental Status: Normal Affect, Appropriate Assessment/Plan The patient appears to be tolerating hyperbaric oxygen therapy well, which will be continued as per the patient's medical plan. Treatment Course Number Number of HBO Treatments 30 Ordered Treatment Course Number 1 Treatment # 9 Chamber # 2 Chamber Type Monoplace Other - Detail Soft Tissue Radionecrosis ( Yes specify site in comment) Treatment Plan SD (Atmospheric Absolute) 2 Number of Minutes 90 Number of Air Breaks 0
[2020-05-16 08:36] VITALS: BP 159/92; BP 195/95; PULSE 56; PULSE 66; RESP 16; TEMP 35.9
--- NOTE | 2020-05-16 08:53 | PCM.HBO.PN ---
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 Progress: Today's session represents the 10th session of hyperbaric oxygen therapy, of an expected 30 such treatments. Tolerance of hyperbaric oxygen therapy: Hyperbaric oxygen therapy was administered as per the facility's protocol. Hyperbaric oxygen therapy was administered for 90 minutes at 2 sweta, with no air breaks. Upon emergence from the hyperbaric oxygen chamber the patient had no complaints or complications. The patient's vital signs remained stable. The patient was discharged in good condition. His pre-and post- HBO blood sugars are recorded elsewhere. Past Medical History Chronic Problems RIKY (obstructive sleep apnea) (Chronic) Arthritis (Chronic) Morbid obesity with BMI of 40.0-44.9, adult (Chronic) Allergies/Adverse Reactions: Allergies No Known Allergies Allergy (Verified 11/14/18 01:56) Home Medications: Ambulatory Orders Medication Instructions Recorded Acetaminophen [Tylenol Extra 500 mg PO Q6H PRN PRN 04/06/20 Strength] Famotidine/Ca Carb/Mag Hydrox 1 ea PO DAILY PRN PRN 04/06/20 [Pepcid Complete Tablet Chew] Maternal Family History: No pertinent history Paternal Family History: No pertinent history Smoking Status: Never smoker Physical Exam Vital Signs Temp Pulse Resp BP 96.6 F L 66 16 195/95 H 05/16/20 08:36 05/16/20 08:36 05/16/20 08:36 05/16/20 08:36 General: Alert, Oriented x3, Cooperative, No apparent distress HEENT: Atraumatic, TM's Clear Lungs: Clear to auscultation, Normal air movement Cardiovascular: Regular rate, Regular Rhythm Psych/Mental Status: Normal Affect, Appropriate, Alert and oriented to time, place, person, mood and affect Assessment/Plan Treatment Course Number Number of HBO Treatments 30 Ordered Treatment Course Number 1 Treatment # 10 Chamber # [id number] Chamber Type Monoplace Other - Detail Soft Tissue Radionecrosis ( Yes: rectum specify site in comment) Treatment Plan SD (Atmospheric Absolute) 2 Number of Minutes 90 Number of Air Breaks 0
[2020-05-17 11:22] VITALS: BP 150/82; BP 156/91; PULSE 55; PULSE 61; RESP 16; RESP 18; TEMP 35.8
--- NOTE | 2020-05-17 14:14 | PCM.HBO.PN ---
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 Progress: Today's session represents the 11th session of hyperbaric oxygen therapy, of an expected 30 such treatments. Tolerance of hyperbaric oxygen therapy: Hyperbaric oxygen therapy was administered as per the facility's protocol. Hyperbaric oxygen therapy was administered for 90 minutes at 2 sweta, with no air breaks. Upon emergence from the hyperbaric oxygen chamber the patient had no complaints or complications. The patient's vital signs remained stable. The patient was discharged in good condition. Past Medical History Chronic Problems RIKY (obstructive sleep apnea) (Chronic) Arthritis (Chronic) Morbid obesity with BMI of 40.0-44.9, adult (Chronic) Allergies/Adverse Reactions: Allergies No Known Allergies Allergy (Verified 11/14/18 01:56) Home Medications: Ambulatory Orders Medication Instructions Recorded Acetaminophen [Tylenol Extra 500 mg PO Q6H PRN PRN 04/06/20 Strength] Famotidine/Ca Carb/Mag Hydrox 1 ea PO DAILY PRN PRN 04/06/20 [Pepcid Complete Tablet Chew] Maternal Family History: No pertinent history Paternal Family History: No pertinent history Smoking Status: Never smoker Physical Exam Vital Signs Temp Pulse Resp BP 96.4 F L 61 18 156/91 H 05/17/20 11:22 05/17/20 11:22 05/17/20 11:22 05/17/20 11:22 General: Alert, Oriented x3, Cooperative, No apparent distress, Well developed, Well nourished HEENT: Atraumatic, PERRLA, EOMI, Normocephalic Lungs: Normal air movement Psych/Mental Status: Normal Affect, Appropriate, Alert and oriented to time, place, person, mood and affect Assessment/Plan The patient appears to be tolerating hyperbaric oxygen therapy well, which will be continued as per the patient's medical plan. Treatment Course Number Number of HBO Treatments 30 Ordered Treatment Course Number 1 Treatment # 11 Chamber # 2 Chamber Type Monoplace Other - Detail Soft Tissue Radionecrosis ( Yes: rectum specify site in comment) Treatment Plan SD (Atmospheric Absolute) 2 Number of Minutes 90 Number of Air Breaks 0
[2020-05-18 08:27] VITALS: BP 164/96; BP 178/90; PULSE 54; PULSE 60; RESP 17; RESP 18; TEMP 36.1
--- NOTE | 2020-05-18 10:52 | PCM.HBO.PN ---
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 Progress: Today's session represents the 12th session of hyperbaric oxygen therapy, of an expected 30 such treatments. Tolerance of hyperbaric oxygen therapy: Hyperbaric oxygen therapy was administered as per the facility's protocol. Hyperbaric oxygen therapy was administered for 90 minutes at 2 sweta, with no air breaks. Upon emergence from the hyperbaric oxygen chamber the patient had no complaints or complications. The patient's vital signs remained stable. The patient was discharged in good condition. Past Medical History Chronic Problems RIKY (obstructive sleep apnea) (Chronic) Arthritis (Chronic) Morbid obesity with BMI of 40.0-44.9, adult (Chronic) Allergies/Adverse Reactions: Allergies No Known Allergies Allergy (Verified 11/14/18 01:56) Home Medications: Ambulatory Orders Medication Instructions Recorded Acetaminophen [Tylenol Extra 500 mg PO Q6H PRN PRN 04/06/20 Strength] Famotidine/Ca Carb/Mag Hydrox 1 ea PO DAILY PRN PRN 04/06/20 [Pepcid Complete Tablet Chew] Maternal Family History: No pertinent history Paternal Family History: No pertinent history Smoking Status: Never smoker Physical Exam Vital Signs Temp Pulse Resp BP 96.9 F L 60 18 178/90 H 05/18/20 08:27 05/18/20 08:27 05/18/20 08:27 05/18/20 08:27 Assessment/Plan The patient appears to be tolerating hyperbaric oxygen therapy well, which will be continued as per the patient's medical plan. Treatment Course Number Number of HBO Treatments 30 Ordered Treatment Course Number 1 Treatment # 11 Chamber # 2 Chamber Type Monoplace Other - Detail Soft Tissue Radionecrosis ( Yes: rectum specify site in comment) Treatment Plan SD (Atmospheric Absolute) 2 Number of Minutes 90 Number of Air Breaks 0
--- NOTE | 2020-05-19 11:17 | PCM.HBO.PN ---
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 Progress: Today's session represents the 13th session of hyperbaric oxygen therapy, of an expected 30 such treatments. Tolerance of hyperbaric oxygen therapy: Hyperbaric oxygen therapy was administered as per the facility's protocol. Hyperbaric oxygen therapy was administered for 90 minutes at 2 sweta, with no air breaks. Upon emergence from the hyperbaric oxygen chamber the patient had no complaints or complications. The patient's vital signs remained stable. The patient was discharged in good condition. Past Medical History Chronic Problems RIKY (obstructive sleep apnea) (Chronic) Arthritis (Chronic) Morbid obesity with BMI of 40.0-44.9, adult (Chronic) Allergies/Adverse Reactions: Allergies No Known Allergies Allergy (Verified 11/14/18 01:56) Home Medications: Ambulatory Orders Medication Instructions Recorded Acetaminophen [Tylenol Extra 500 mg PO Q6H PRN PRN 04/06/20 Strength] Famotidine/Ca Carb/Mag Hydrox 1 ea PO DAILY PRN PRN 04/06/20 [Pepcid Complete Tablet Chew] Maternal Family History: No pertinent history Paternal Family History: No pertinent history Smoking Status: Never smoker Physical Exam Vital Signs Temp Pulse Resp BP 96.9 F L 60 18 178/90 H 05/18/20 08:27 05/18/20 08:27 05/18/20 08:27 05/18/20 08:27 General: Alert, Oriented x3, Cooperative, No apparent distress HEENT: Atraumatic, Normocephalic Lungs: Normal air movement Psych/Mental Status: Normal Affect Assessment/Plan The patient appears to be tolerating hyperbaric oxygen therapy well, which will be continued as per the patient's medical plan. Treatment Course Number Number of HBO Treatments 30 Ordered Treatment Course Number 1 Treatment # 13 Chamber # 2 Chamber Type Monoplace Other - Detail Soft Tissue Radionecrosis ( Yes: rectum specify site in comment) Treatment Plan SD (Atmospheric Absolute) 2 Number of Minutes 90 Number of Air Breaks 0 HBO Supervision
[2020-05-19 11:41] VITALS: BP 154/100; BP 161/92; PULSE 51; PULSE 60; RESP 18; TEMP 36; TEMP 36.7
--- NOTE | 2020-05-20 08:45 | PCM.HBO.PN ---
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 Progress: Today's session represents the 14th session of hyperbaric oxygen therapy, of an expected 30 such treatments. Tolerance of hyperbaric oxygen therapy: Hyperbaric oxygen therapy was administered as per the facility's protocol. Hyperbaric oxygen therapy was administered for 90 minutes at 2 sweta, with no air breaks. Upon emergence from the hyperbaric oxygen chamber the patient had no complaints or complications. The patient's vital signs remained stable. The patient was discharged in good condition. Past Medical History Chronic Problems RIKY (obstructive sleep apnea) (Chronic) Arthritis (Chronic) Morbid obesity with BMI of 40.0-44.9, adult (Chronic) Allergies/Adverse Reactions: Allergies No Known Allergies Allergy (Verified 11/14/18 01:56) Home Medications: Ambulatory Orders Medication Instructions Recorded Acetaminophen [Tylenol Extra 500 mg PO Q6H PRN PRN 04/06/20 Strength] Famotidine/Ca Carb/Mag Hydrox 1 ea PO DAILY PRN PRN 04/06/20 [Pepcid Complete Tablet Chew] Maternal Family History: No pertinent history Paternal Family History: No pertinent history Smoking Status: Never smoker Physical Exam Vital Signs Temp Pulse Resp BP 96.8 F L 60 18 161/92 H 05/19/20 11:41 05/19/20 11:41 05/19/20 11:41 05/19/20 11:41 General: Alert, Oriented x3, Cooperative, No apparent distress HEENT: Atraumatic, TM's Clear Lungs: Clear to auscultation, Normal air movement Cardiovascular: Regular rate, Regular Rhythm Psych/Mental Status: Normal Affect, Appropriate, Alert and oriented to time, place, person, mood and affect Assessment/Plan Treatment Course Number Number of HBO Treatments 30 Ordered Treatment Course Number 1 Treatment # 14 Chamber # 2 Chamber Type Monoplace Other - Detail Soft Tissue Radionecrosis ( Yes: rectum specify site in comment) Treatment Plan SD (Atmospheric Absolute) 2 Number of Minutes 90 Number of Air Breaks 0
[2020-05-20 10:47] VITALS: BP 147/91; BP 152/86; PULSE 53; PULSE 60; RESP 16; RESP 17; TEMP 35.5; TEMP 35.8
--- NOTE | 2020-05-23 08:25 | PCM.HBO.PN ---
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 Progress: Today's session represents the 15th session of hyperbaric oxygen therapy, of an expected 30 such treatments. Tolerance of hyperbaric oxygen therapy: Hyperbaric oxygen therapy was administered as per the facility's protocol. Hyperbaric oxygen therapy was administered for 90 minutes at 2 sweta, with no air breaks. Upon emergence from the hyperbaric oxygen chamber the patient had no complaints or complications. The patient's vital signs remained stable. The patient was discharged in good condition. Past Medical History Chronic Problems RIKY (obstructive sleep apnea) (Chronic) Arthritis (Chronic) Morbid obesity with BMI of 40.0-44.9, adult (Chronic) Allergies/Adverse Reactions: Allergies No Known Allergies Allergy (Verified 11/14/18 01:56) Home Medications: Ambulatory Orders Medication Instructions Recorded Acetaminophen [Tylenol Extra 500 mg PO Q6H PRN PRN 04/06/20 Strength] Famotidine/Ca Carb/Mag Hydrox 1 ea PO DAILY PRN PRN 04/06/20 [Pepcid Complete Tablet Chew] Maternal Family History: No pertinent history Paternal Family History: No pertinent history Smoking Status: Never smoker Physical Exam Vital Signs Temp Pulse Resp BP 95.9 F L 60 16 152/86 H 05/20/20 10:47 05/20/20 10:47 05/20/20 10:47 05/20/20 10:47 General: Alert, Oriented x3, Cooperative, No apparent distress HEENT: Atraumatic, TM's Clear Lungs: Clear to auscultation, Normal air movement Cardiovascular: Regular rate, Regular Rhythm Psych/Mental Status: Normal Affect, Appropriate, Alert and oriented to time, place, person, mood and affect Assessment/Plan Treatment Course Number Number of HBO Treatments 30 Ordered Treatment Course Number 1 Treatment # 15 Chamber # 2 Chamber Type Monoplace Other - Detail Soft Tissue Radionecrosis ( Yes: rectum specify site in comment) Treatment Plan SD (Atmospheric Absolute) 2 Number of Minutes 90 Number of Air Breaks 0
[2020-05-23 08:36] VITALS: BP 144/77; BP 145/81; PULSE 51; PULSE 70; RESP 16; TEMP 35.7; TEMP 36.7
[2020-05-24 08:48] VITALS: BP 157/92; BP 159/76; PULSE 57; PULSE 68; RESP 16; RESP 18; TEMP 36.6; TEMP 36.7
--- NOTE | 2020-05-24 14:50 | PCM.HBO.PN ---
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 Progress: Today's session represents the 16th session of hyperbaric oxygen therapy, of an expected 30 such treatments. Tolerance of hyperbaric oxygen therapy: Hyperbaric oxygen therapy was administered as per the facility's protocol. Hyperbaric oxygen therapy was administered for 90 minutes at 2 sweta, with no air breaks. Upon emergence from the hyperbaric oxygen chamber the patient had no complaints or complications. Upon emergence from the hyperbaric chamber, the patient's vital signs remained stable. The patient was discharged in good condition. Past Medical History Chronic Problems RIKY (obstructive sleep apnea) (Chronic) Arthritis (Chronic) Morbid obesity with BMI of 40.0-44.9, adult (Chronic) Allergies/Adverse Reactions: Allergies No Known Allergies Allergy (Verified 11/14/18 01:56) Home Medications: Ambulatory Orders Medication Instructions Recorded Acetaminophen [Tylenol Extra 500 mg PO Q6H PRN PRN 04/06/20 Strength] Famotidine/Ca Carb/Mag Hydrox 1 ea PO DAILY PRN PRN 04/06/20 [Pepcid Complete Tablet Chew] Maternal Family History: No pertinent history Paternal Family History: No pertinent history Smoking Status: Never smoker Physical Exam Vital Signs Temp Pulse Resp BP 98.0 F 68 18 157/92 H 05/24/20 08:48 05/24/20 08:48 05/24/20 08:48 05/24/20 08:48 General: Alert, Oriented x3, Cooperative, No apparent distress, Well developed, Well nourished HEENT: Atraumatic, PERRLA, EOMI, Normocephalic Lungs: Normal air movement Psych/Mental Status: Normal Affect, Appropriate, Alert and oriented to time, place, person, mood and affect Assessment/Plan Patient appears to be tolerating hyperbaric oxygen therapy well, which will continue as per the patient's medical plan. Treatment Course Number Number of HBO Treatments 40 Ordered Treatment Course Number 1 Treatment # 16 Chamber # 2 Chamber Type Monoplace Other - Detail Soft Tissue Radionecrosis ( Yes: rectum specify site in comment) Treatment Plan SD (Atmospheric Absolute) 2 Number of Minutes 90 Number of Air Breaks 0
[2020-05-25 08:29] VITALS: BP 143/73; BP 189/92; PULSE 72; PULSE 74; RESP 15; RESP 18; TEMP 35.8; TEMP 35.9
--- NOTE | 2020-05-25 11:20 | PCM.HBO.PN ---
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 Progress: Today's session represents the 17th session of hyperbaric oxygen therapy, of an expected 30 such treatments. Tolerance of hyperbaric oxygen therapy: Hyperbaric oxygen therapy was administered as per the facility's protocol. Hyperbaric oxygen therapy was administered for 90 minutes at 2 sweta, with no air breaks. Upon emergence from the hyperbaric oxygen chamber the patient had no complaints or complications. Upon emergence from the hyperbaric chamber, the patient's vital signs remained stable. The patient was discharged in good condition. Past Medical History Chronic Problems RIKY (obstructive sleep apnea) (Chronic) Arthritis (Chronic) Morbid obesity with BMI of 40.0-44.9, adult (Chronic) Allergies/Adverse Reactions: Allergies No Known Allergies Allergy (Verified 11/14/18 01:56) Home Medications: Ambulatory Orders Medication Instructions Recorded Acetaminophen [Tylenol Extra 500 mg PO Q6H PRN PRN 04/06/20 Strength] Famotidine/Ca Carb/Mag Hydrox 1 ea PO DAILY PRN PRN 04/06/20 [Pepcid Complete Tablet Chew] Maternal Family History: No pertinent history Paternal Family History: No pertinent history Smoking Status: Never smoker Physical Exam Vital Signs Temp Pulse Resp BP 96.7 F L 72 18 189/92 H 05/25/20 08:29 05/25/20 08:29 05/25/20 08:29 05/25/20 08:29 Assessment/Plan Patient appears to be tolerating hyperbaric oxygen therapy well, which will continue as per the patient's medical plan. Treatment Course Number Number of HBO Treatments 40 Ordered Treatment Course Number 1 Treatment # 17 Chamber # 2 Chamber Type Monoplace Other - Detail Soft Tissue Radionecrosis ( Yes: rectum specify site in comment) Treatment Plan SD (Atmospheric Absolute) 2 Number of Minutes 90 Number of Air Breaks 0
[2020-05-26 08:24] VITALS: BP 146/84; BP 147/87; PULSE 54; PULSE 59; RESP 16; RESP 18; TEMP 36.7; TEMP 36.8
--- NOTE | 2020-05-26 12:22 | PCM.HBO.PN ---
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 Progress: Today's session represents the 18th session of hyperbaric oxygen therapy, of an expected 30 such treatments. Tolerance of hyperbaric oxygen therapy: Hyperbaric oxygen therapy was administered as per the facility's protocol. Hyperbaric oxygen therapy was administered for 90 minutes at 2 sweta, with no air breaks. Upon emergence from the hyperbaric oxygen chamber the patient had no complaints or complications. Upon emergence from the hyperbaric chamber, the patient's vital signs remained stable. The patient was discharged in good condition. Past Medical History Chronic Problems RIKY (obstructive sleep apnea) (Chronic) Arthritis (Chronic) Morbid obesity with BMI of 40.0-44.9, adult (Chronic) Allergies/Adverse Reactions: Allergies No Known Allergies Allergy (Verified 11/14/18 01:56) Home Medications: Ambulatory Orders Medication Instructions Recorded Acetaminophen [Tylenol Extra 500 mg PO Q6H PRN PRN 04/06/20 Strength] Famotidine/Ca Carb/Mag Hydrox 1 ea PO DAILY PRN PRN 04/06/20 [Pepcid Complete Tablet Chew] Maternal Family History: No pertinent history Paternal Family History: No pertinent history Smoking Status: Never smoker Physical Exam Vital Signs Temp Pulse Resp BP 98.3 F 59 L 18 147/87 H 05/26/20 08:24 05/26/20 08:24 05/26/20 08:24 05/26/20 08:24 General: Alert, Oriented x3, Cooperative, No apparent distress HEENT: Atraumatic, Normocephalic Lungs: Normal air movement Psych/Mental Status: Normal Affect Assessment/Plan Patient appears to be tolerating hyperbaric oxygen therapy well, which will continue as per the patient's medical plan. Treatment Course Number Number of HBO Treatments 40 Ordered Treatment Course Number 1 Treatment # 18 Chamber # 2 Chamber Type Monoplace Other - Detail Soft Tissue Radionecrosis ( Yes: rectum specify site in comment) Treatment Plan SD (Atmospheric Absolute) 2 Number of Minutes 90 Number of Air Breaks 0 HBO Supervision
[2020-05-27 10:58] VITALS: BP 148/77; BP 165/91; PULSE 54; PULSE 61; RESP 16; TEMP 35.8
--- NOTE | 2020-05-27 12:46 | PCM.HBO.PN ---
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 Progress: Today's session represents the 19th session of hyperbaric oxygen therapy, of an expected 30 such treatments. Tolerance of hyperbaric oxygen therapy: Hyperbaric oxygen therapy was administered as per the facility's protocol. Hyperbaric oxygen therapy was administered for 90 minutes at 2 sweta, with no air breaks. Upon emergence from the hyperbaric oxygen chamber the patient had no complaints or complications. Upon emergence from the hyperbaric chamber, the patient's vital signs remained stable. The patient was discharged in good condition. Past Medical History Chronic Problems RIKY (obstructive sleep apnea) (Chronic) Arthritis (Chronic) Morbid obesity with BMI of 40.0-44.9, adult (Chronic) Allergies/Adverse Reactions: Allergies No Known Allergies Allergy (Verified 11/14/18 01:56) Home Medications: Ambulatory Orders Medication Instructions Recorded Acetaminophen [Tylenol Extra 500 mg PO Q6H PRN PRN 04/06/20 Strength] Famotidine/Ca Carb/Mag Hydrox 1 ea PO DAILY PRN PRN 04/06/20 [Pepcid Complete Tablet Chew] Maternal Family History: No pertinent history Paternal Family History: No pertinent history Smoking Status: Never smoker Physical Exam Vital Signs Temp Pulse Resp BP 96.4 F L 61 16 165/91 H 05/27/20 10:58 05/27/20 10:58 05/27/20 10:58 05/27/20 10:58 General: Alert, Cooperative, No apparent distress HEENT: Atraumatic, Normocephalic, TM's Clear Lungs: Normal air movement, No rhonchi, No wheeze, No rales, Diminished Cardiovascular: Regular rate, Regular Rhythm Psych/Mental Status: Normal Affect, Appropriate Assessment/Plan Patient appears to be tolerating hyperbaric oxygen therapy well, which will continue as per the patient's medical plan. Treatment Course Number Number of HBO Treatments 40 Ordered Treatment Course Number 1 Treatment # 19 Chamber # 2 Chamber Type Monoplace Other - Detail Soft Tissue Radionecrosis ( Yes: rectum specify site in comment) Treatment Plan SD (Atmospheric Absolute) 2 Number of Minutes 90 Number of Air Breaks 0
--- NOTE | 2020-05-30 08:36 | PCM.HBO.PN ---
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 Progress: Today's session represents the 20th session of hyperbaric oxygen therapy, of an expected 30 such treatments. Tolerance of hyperbaric oxygen therapy: Hyperbaric oxygen therapy was administered as per the facility's protocol. Hyperbaric oxygen therapy was administered for 90 minutes at 2 sweta, with no air breaks. Upon emergence from the hyperbaric oxygen chamber the patient had no complaints or complications. Upon emergence from the hyperbaric chamber, the patient's vital signs remained stable. The patient was discharged in good condition. Past Medical History Chronic Problems RIKY (obstructive sleep apnea) (Chronic) Arthritis (Chronic) Morbid obesity with BMI of 40.0-44.9, adult (Chronic) Allergies/Adverse Reactions: Allergies No Known Allergies Allergy (Verified 11/14/18 01:56) Home Medications: Ambulatory Orders Medication Instructions Recorded Acetaminophen [Tylenol Extra 500 mg PO Q6H PRN PRN 04/06/20 Strength] Famotidine/Ca Carb/Mag Hydrox 1 ea PO DAILY PRN PRN 04/06/20 [Pepcid Complete Tablet Chew] Maternal Family History: No pertinent history Paternal Family History: No pertinent history Smoking Status: Never smoker Physical Exam Vital Signs Temp Pulse Resp BP 96.4 F L 61 16 165/91 H 05/27/20 10:58 05/27/20 10:58 05/27/20 10:58 05/27/20 10:58 General: Alert, Oriented x3, Cooperative, No apparent distress HEENT: Atraumatic, TM's Clear Lungs: Clear to auscultation, Normal air movement Cardiovascular: Regular rate, Regular Rhythm Psych/Mental Status: Normal Affect, Appropriate, Alert and oriented to time, place, person, mood and affect Assessment/Plan Treatment Course Number Number of HBO Treatments 40 Ordered Treatment Course Number 1 Treatment # 20 Chamber # 2 Chamber Type Monoplace Other - Detail Soft Tissue Radionecrosis ( Yes: rectum specify site in comment) Treatment Plan SD (Atmospheric Absolute) 2 Number of Minutes 90 Number of Air Breaks 0
[2020-05-30 08:48] VITALS: BP 135/76; BP 138/74; PULSE 51; PULSE 66; RESP 16; RESP 17; TEMP 36.3; TEMP 36.4
[2020-05-31 08:20] VITALS: BP 142/80; BP 152/87; PULSE 53; PULSE 64; RESP 16; RESP 17; TEMP 36.2
--- NOTE | 2020-05-31 13:20 | PCM.HBO.PN ---
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 Progress: Today's session represents the 21st session of hyperbaric oxygen therapy, of an expected 30 such treatments. Tolerance of hyperbaric oxygen therapy: Hyperbaric oxygen therapy was administered as per the facility's protocol. Hyperbaric oxygen therapy was administered for 90 minutes at 2 sweta, with no air breaks. Upon emergence from the hyperbaric oxygen chamber the patient had no complaints or complications. Upon emergence from the hyperbaric chamber, the patient's vital signs remained stable. The patient was discharged in good condition. Past Medical History Chronic Problems RIKY (obstructive sleep apnea) (Chronic) Arthritis (Chronic) Morbid obesity with BMI of 40.0-44.9, adult (Chronic) Allergies/Adverse Reactions: Allergies No Known Allergies Allergy (Verified 11/14/18 01:56) Home Medications: Ambulatory Orders Medication Instructions Recorded Acetaminophen [Tylenol Extra 500 mg PO Q6H PRN PRN 04/06/20 Strength] Famotidine/Ca Carb/Mag Hydrox 1 ea PO DAILY PRN PRN 04/06/20 [Pepcid Complete Tablet Chew] Maternal Family History: No pertinent history Paternal Family History: No pertinent history Smoking Status: Never smoker Physical Exam Vital Signs Temp Pulse Resp BP 97.1 F L 64 17 152/87 H 05/31/20 08:20 05/31/20 08:20 05/31/20 08:20 05/31/20 08:20 General: Alert, Oriented x3, Cooperative, No apparent distress, Well developed, Well nourished HEENT: Atraumatic, PERRLA, EOMI, Normocephalic Lungs: Normal air movement Psych/Mental Status: Normal Affect, Appropriate, Alert and oriented to time, place, person, mood and affect Assessment/Plan The patient appears to be tolerating hyperbaric oxygen therapy well, which will be continued as per the patient's medical plan. Treatment Course Number Number of HBO Treatments 40 Ordered Treatment Course Number 1 Treatment # 21 Chamber # 2 Chamber Type Monoplace Other - Detail Soft Tissue Radionecrosis ( Yes: rectum specify site in comment) Treatment Plan SD (Atmospheric Absolute) 2 Number of Minutes 90 Number of Air Breaks 0
[2020-06-01 08:34] VITALS: BP 101/72; BP 145/75; PULSE 62; PULSE 74; RESP 16; RESP 17; TEMP 35.7; TEMP 36.4
--- NOTE | 2020-06-01 10:30 | PCM.HBO.PN ---
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 Progress: Today's session represents the 22nd session of hyperbaric oxygen therapy, of an expected 30 such treatments. Tolerance of hyperbaric oxygen therapy: Hyperbaric oxygen therapy was administered as per the facility's protocol. Hyperbaric oxygen therapy was administered for 90 minutes at 2 sweta, with no air breaks. Upon emergence from the hyperbaric oxygen chamber the patient had no complaints or complications. Upon emergence from the hyperbaric chamber, the patient's vital signs remained stable. The patient was discharged in good condition. Past Medical History Chronic Problems RIKY (obstructive sleep apnea) (Chronic) Arthritis (Chronic) Morbid obesity with BMI of 40.0-44.9, adult (Chronic) Allergies/Adverse Reactions: Allergies No Known Allergies Allergy (Verified 11/14/18 01:56) Home Medications: Ambulatory Orders Medication Instructions Recorded Acetaminophen [Tylenol Extra 500 mg PO Q6H PRN PRN 04/06/20 Strength] Famotidine/Ca Carb/Mag Hydrox 1 ea PO DAILY PRN PRN 04/06/20 [Pepcid Complete Tablet Chew] Maternal Family History: No pertinent history Paternal Family History: No pertinent history Smoking Status: Never smoker Physical Exam Vital Signs Temp Pulse Resp BP 97.5 F L 62 17 145/75 H 06/01/20 08:34 06/01/20 08:34 06/01/20 08:34 06/01/20 08:34 Assessment/Plan The patient appears to be tolerating hyperbaric oxygen therapy well, which will be continued as per the patient's medical plan. Treatment Course Number Number of HBO Treatments 40 Ordered Treatment Course Number 1 Treatment # 20 Chamber # 2 Chamber Type Monoplace Other - Detail Soft Tissue Radionecrosis ( Yes: rectum specify site in comment) Treatment Plan SD (Atmospheric Absolute) 2 Number of Minutes 90 Number of Air Breaks 0
[2020-06-03 09:57] VITALS: BP 143/78; BP 156/86; PULSE 52; PULSE 60; RESP 17; TEMP 35.3; TEMP 35.8
--- NOTE | 2020-06-03 10:52 | PCM.HBO.PN ---
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 Progress: Today's session represents the 23rd session of hyperbaric oxygen therapy, of an expected 30 such treatments. Tolerance of hyperbaric oxygen therapy: Hyperbaric oxygen therapy was administered as per the facility's protocol. Hyperbaric oxygen therapy was administered for 90 minutes at 2 sweta, with no air breaks. Upon emergence from the hyperbaric oxygen chamber the patient had no complaints or complications. Upon emergence from the hyperbaric chamber, the patient's vital signs remained stable. The patient was discharged in good condition. Past Medical History Chronic Problems RIKY (obstructive sleep apnea) (Chronic) Arthritis (Chronic) Morbid obesity with BMI of 40.0-44.9, adult (Chronic) Allergies/Adverse Reactions: Allergies No Known Allergies Allergy (Verified 11/14/18 01:56) Home Medications: Ambulatory Orders Medication Instructions Recorded Acetaminophen [Tylenol Extra 500 mg PO Q6H PRN PRN 04/06/20 Strength] Famotidine/Ca Carb/Mag Hydrox 1 ea PO DAILY PRN PRN 04/06/20 [Pepcid Complete Tablet Chew] Maternal Family History: No pertinent history Paternal Family History: No pertinent history Smoking Status: Never smoker Physical Exam Vital Signs Temp Pulse Resp BP 95.5 F L 60 17 156/86 H 06/03/20 09:57 06/03/20 09:57 06/03/20 09:57 06/03/20 09:57 General: Alert, Oriented x3, Cooperative, No apparent distress Psych/Mental Status: Normal Affect, Appropriate Assessment/Plan The patient appears to be tolerating hyperbaric oxygen therapy well, which will be continued as per the patient's medical plan. Treatment Course Number Number of HBO Treatments 40 Ordered Treatment Course Number 1 Treatment # 23 Chamber # 2 Chamber Type Monoplace Other - Detail Soft Tissue Radionecrosis ( Yes: rectum specify site in comment) Treatment Plan SD (Atmospheric Absolute) 2 Number of Minutes 90 Number of Air Breaks 0
[2020-06-06 08:42] VITALS: BP 156/86; BP 159/91; PULSE 56; PULSE 65; RESP 18; TEMP 36.1; TEMP 36.6
--- NOTE | 2020-06-06 08:46 | PCM.HBO.PN ---
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 Progress: Today's session represents the 24th session of hyperbaric oxygen therapy, of an expected 30 such treatments. Tolerance of hyperbaric oxygen therapy: Hyperbaric oxygen therapy was administered as per the facility's protocol. Hyperbaric oxygen therapy was administered for 90 minutes at 2 sweta, with no air breaks. Upon emergence from the hyperbaric oxygen chamber the patient had no complaints or complications. Upon emergence from the hyperbaric chamber, the patient's vital signs remained stable. The patient was discharged in good condition. Past Medical History Chronic Problems (Last Updated 06/03/20 @ 10:[address] Rashida Ribera DO) RIKY (obstructive sleep apnea) (Chronic) Arthritis (Chronic) Morbid obesity with BMI of 40.0-44.9, adult (Chronic) Allergies/Adverse Reactions: Allergies No Known Allergies Allergy (Verified 11/14/18 01:56) Home Medications: Ambulatory Orders Medication Instructions Recorded Acetaminophen [Tylenol Extra 500 mg PO Q6H PRN PRN 04/06/20 Strength] Famotidine/Ca Carb/Mag Hydrox 1 ea PO DAILY PRN PRN 04/06/20 [Pepcid Complete Tablet Chew] Maternal Family History: No pertinent history Paternal Family History: No pertinent history Smoking Status: Never smoker Physical Exam Vital Signs Temp Pulse Resp BP 97.8 F 65 18 156/86 H 06/06/20 08:42 06/06/20 08:42 06/06/20 08:42 06/06/20 08:42 General: Alert, Oriented x3, Cooperative, No apparent distress HEENT: Atraumatic, TM's Clear Lungs: Clear to auscultation, Normal air movement Cardiovascular: Regular rate, Regular Rhythm Psych/Mental Status: Normal Affect, Appropriate, Alert and oriented to time, place, person, mood and affect Assessment/Plan Treatment Course Number Number of HBO Treatments 40 Ordered Treatment Course Number 1 Treatment # 24 Chamber # 2 Chamber Type Monoplace Other - Detail Soft Tissue Radionecrosis ( Yes: rectum specify site in comment) Treatment Plan SD (Atmospheric Absolute) 2 Number of Minutes 90 Number of Air Breaks 0
== END 2020-06-06 23:59 ==
LOC: WC 08:00
PROVIDERS: PCP Family Medicine; Referring Provider Urology; Visit Provider Family Medicine
DX: L59.8 Other specified disorders of the skin and subcutaneous tissue related to radiation (principal); Y84.2 Radiological procedure and radiotherapy as the cause of abnormal reaction of the patient, or of later complication, without mention of misadventure at the time of the procedure; M19.90 Unspecified osteoarthritis, unspecified site; E66.01 Morbid (severe) obesity due to excess calories; Z68.41 Body mass index [BMI] 40.0-44.9, adult
CPT/HCPCS: 99183; G0277

== ENCOUNTER 2020-06-28 08:00 | Outpatient (RCR) | payer MEDICARE, SELFPAY ==
[2020-06-07 00:33] VITALS: BP 159/91; PULSE 56; RESP 18; TEMP 36.1
[2020-06-07 09:05] VITALS: BP 144/70; BP 155/78; PULSE 52; PULSE 61; RESP 17; TEMP 36.3
--- NOTE | 2020-06-07 14:17 | PCM.HBO.PN ---
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 Progress: Today's hyperbaric oxygen therapy session represents the 25th session of hyperbaric oxygen therapy of a planned 40 such sessions. Tolerance of hyperbaric oxygen therapy: Hyperbaric oxygen therapy was administered as per the facility's protocol. Hyperbaric oxygen therapy was administered for 90 minutes at 2 sweta with no air breaks. Patient had no complaints or complications. Upon emergence from the hyperbaric chamber, the patient's vital signs remained stable. The patient was discharged in good condition. Past Medical History Chronic Problems (Last Updated 06/03/20 @ 10:[address] Rashida Ribera DO) RIKY (obstructive sleep apnea) (Chronic) Arthritis (Chronic) Morbid obesity with BMI of 40.0-44.9, adult (Chronic) Allergies/Adverse Reactions: Allergies No Known Allergies Allergy (Verified 11/14/18 01:56) Home Medications: Ambulatory Orders Medication Instructions Recorded Acetaminophen [Tylenol Extra 500 mg PO Q6H PRN PRN 04/06/20 Strength] Famotidine/Ca Carb/Mag Hydrox 1 ea PO DAILY PRN PRN 04/06/20 [Pepcid Complete Tablet Chew] Maternal Family History: No pertinent history Paternal Family History: No pertinent history Smoking Status: Never smoker Physical Exam Vital Signs Temp Pulse Resp BP 97.3 F L 61 17 144/70 H 06/07/20 09:05 06/07/20 09:05 06/07/20 09:05 06/07/20 09:05 General: Alert, Oriented x3, Cooperative, No apparent distress, Well developed, Well nourished HEENT: Atraumatic, PERRLA, EOMI, Normocephalic Lungs: Normal air movement Psych/Mental Status: Normal Affect, Appropriate, Alert and oriented to time, place, person, mood and affect Assessment/Plan Patient appears to be tolerating hyperbaric oxygen therapy well, which will be continued as per the patient's medical plan. Treatment Course Number Number of HBO Treatments 40 Ordered Treatment Course Number 1 Treatment # 25 Chamber # 2 Chamber Type Monoplace Other - Detail Soft Tissue Radionecrosis ( Yes: rectum specify site in comment) Treatment Plan SD (Atmospheric Absolute) 2 Number of Minutes 90 Number of Air Breaks 0
[2020-06-08 08:23] VITALS: BP 143/76; BP 158/84; PULSE 52; PULSE 60; RESP 17; TEMP 35.4; TEMP 35.6; BMI 49.5
--- NOTE | 2020-06-08 10:29 | PCM.HBO.PN ---
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 Progress: Today's hyperbaric oxygen therapy session represents the 26th session of hyperbaric oxygen therapy of a planned 40 such sessions. Tolerance of hyperbaric oxygen therapy: Hyperbaric oxygen therapy was administered as per the facility's protocol. Hyperbaric oxygen therapy was administered for 90 minutes at 2 sweta with no air breaks. Patient had no complaints or complications. Upon emergence from the hyperbaric chamber, the patient's vital signs remained stable. The patient was discharged in good condition. Past Medical History Chronic Problems (Last Updated 06/03/20 @ 10:[address] Rashida Ribera DO) RIKY (obstructive sleep apnea) (Chronic) Arthritis (Chronic) Morbid obesity with BMI of 40.0-44.9, adult (Chronic) Allergies/Adverse Reactions: Allergies No Known Allergies Allergy (Verified 11/14/18 01:56) Home Medications: Ambulatory Orders Medication Instructions Recorded Acetaminophen [Tylenol Extra 500 mg PO Q6H PRN PRN 04/06/20 Strength] Famotidine/Ca Carb/Mag Hydrox 1 ea PO DAILY PRN PRN 04/06/20 [Pepcid Complete Tablet Chew] Maternal Family History: No pertinent history Paternal Family History: No pertinent history Smoking Status: Never smoker Physical Exam Vital Signs Temp Pulse Resp BP 95.7 F L 60 17 158/84 H 06/08/20 08:23 06/08/20 08:23 06/08/20 08:23 06/08/20 08:23 Assessment/Plan Patient appears to be tolerating hyperbaric oxygen therapy well, which will be continued as per the patient's medical plan. Treatment Course Number Number of HBO Treatments 40 Ordered Treatment Course Number 1 Treatment # 26 Chamber # 2 Chamber Type Monoplace Other - Detail Soft Tissue Radionecrosis ( Yes: rectum specify site in comment) Treatment Plan SD (Atmospheric Absolute) 2 Number of Minutes 90 Number of Air Breaks 0
[2020-06-09 08:31] VITALS: BP 140/84; BP 151/76; PULSE 50; PULSE 59; RESP 17; TEMP 35.8; TEMP 35.9
--- NOTE | 2020-06-09 09:03 | PCM.HBO.PN ---
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 Progress: Today's hyperbaric oxygen therapy session represents the 27th session of hyperbaric oxygen therapy of a planned 40 such sessions. Tolerance of hyperbaric oxygen therapy: Hyperbaric oxygen therapy was administered as per the facility's protocol. Hyperbaric oxygen therapy was administered for 90 minutes at 2 sweta with no air breaks. Patient had no complaints or complications. Upon emergence from the hyperbaric chamber, the patient's vital signs remained stable. The patient was discharged in good condition. Past Medical History Chronic Problems (Last Updated 06/03/20 @ 10:[address] Rashida Ribera DO) RIKY (obstructive sleep apnea) (Chronic) Arthritis (Chronic) Morbid obesity with BMI of 40.0-44.9, adult (Chronic) Allergies/Adverse Reactions: Allergies No Known Allergies Allergy (Verified 11/14/18 01:56) Home Medications: Ambulatory Orders Medication Instructions Recorded Acetaminophen [Tylenol Extra 500 mg PO Q6H PRN PRN 04/06/20 Strength] Famotidine/Ca Carb/Mag Hydrox 1 ea PO DAILY PRN PRN 04/06/20 [Pepcid Complete Tablet Chew] Maternal Family History: No pertinent history Paternal Family History: No pertinent history Smoking Status: Never smoker Physical Exam Vital Signs Temp Pulse Resp BP 96.7 F L 59 L 17 140/84 H 06/09/20 08:31 06/09/20 08:31 06/09/20 08:31 06/09/20 08:31 General: Alert, Oriented x3, Cooperative, No apparent distress HEENT: Atraumatic, Normocephalic Lungs: Normal air movement Psych/Mental Status: Normal Affect Assessment/Plan Patient appears to be tolerating hyperbaric oxygen therapy well, which will be continued as per the patient's medical plan. Treatment Course Number Number of HBO Treatments 40 Ordered Treatment Course Number 1 Treatment # 27 Chamber # 2 Chamber Type Monoplace Other - Detail Soft Tissue Radionecrosis ( Yes: rectum specify site in comment) Treatment Plan SD (Atmospheric Absolute) 2 Number of Minutes 90 Number of Air Breaks 0 HBO Supervision
[2020-06-10 08:34] VITALS: BP 143/76; BP 162/96; PULSE 51; PULSE 61; RESP 17; RESP 18; TEMP 36.2; TEMP 36.4
--- NOTE | 2020-06-10 12:47 | PCM.HBO.PN ---
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 Progress: Today's hyperbaric oxygen therapy session represents the 28th session of hyperbaric oxygen therapy of a planned 40 such sessions. Tolerance of hyperbaric oxygen therapy: Hyperbaric oxygen therapy was administered as per the facility's protocol. Hyperbaric oxygen therapy was administered for 90 minutes at 2 sweta with no air breaks. Patient had no complaints or complications. Upon emergence from the hyperbaric chamber, the patient's vital signs remained stable. The patient was discharged in good condition. Past Medical History Chronic Problems (Last Updated 06/03/20 @ 10:[address] Rashida Ribera DO) RIKY (obstructive sleep apnea) (Chronic) Arthritis (Chronic) Morbid obesity with BMI of 40.0-44.9, adult (Chronic) Allergies/Adverse Reactions: Allergies No Known Allergies Allergy (Verified 11/14/18 01:56) Home Medications: Ambulatory Orders Medication Instructions Recorded Acetaminophen [Tylenol Extra 500 mg PO Q6H PRN PRN 04/06/20 Strength] Famotidine/Ca Carb/Mag Hydrox 1 ea PO DAILY PRN PRN 04/06/20 [Pepcid Complete Tablet Chew] Maternal Family History: No pertinent history Paternal Family History: No pertinent history Smoking Status: Never smoker Physical Exam Vital Signs Temp Pulse Resp BP 97.5 F L 61 18 162/96 H 06/10/20 08:34 06/10/20 08:34 06/10/20 08:34 06/10/20 08:34 General: Alert, Oriented x3, Cooperative, No apparent distress Psych/Mental Status: Normal Affect, Appropriate Assessment/Plan Patient appears to be tolerating hyperbaric oxygen therapy well, which will be continued as per the patient's medical plan. Treatment Course Number Number of HBO Treatments 40 Ordered Treatment Course Number 1 Treatment # 28 Chamber # 2 Chamber Type Monoplace Other - Detail Soft Tissue Radionecrosis ( Yes: rectum specify site in comment) Treatment Plan SD (Atmospheric Absolute) 2 Number of Minutes 90 Number of Air Breaks 0
[2020-06-13 08:32] VITALS: BP 134/78; BP 161/87; PULSE 52; PULSE 63; RESP 16; RESP 17; TEMP 35.7; TEMP 35.8
--- NOTE | 2020-06-13 08:34 | PCM.HBO.PN ---
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 Progress: Today's hyperbaric oxygen therapy session represents the 29th session of hyperbaric oxygen therapy of a planned 40 such sessions. Tolerance of hyperbaric oxygen therapy: Hyperbaric oxygen therapy was administered as per the facility's protocol. Hyperbaric oxygen therapy was administered for 90 minutes at 2 sweta with no air breaks. Patient had no complaints or complications. Upon emergence from the hyperbaric chamber, the patient's vital signs remained stable. The patient was discharged in good condition. Past Medical History Chronic Problems (Last Updated 06/03/20 @ 10:[address] Rashida Ribera DO) RIKY (obstructive sleep apnea) (Chronic) Arthritis (Chronic) Morbid obesity with BMI of 40.0-44.9, adult (Chronic) Allergies/Adverse Reactions: Allergies No Known Allergies Allergy (Verified 11/14/18 01:56) Home Medications: Ambulatory Orders Medication Instructions Recorded Acetaminophen [Tylenol Extra 500 mg PO Q6H PRN PRN 04/06/20 Strength] Famotidine/Ca Carb/Mag Hydrox 1 ea PO DAILY PRN PRN 04/06/20 [Pepcid Complete Tablet Chew] Maternal Family History: No pertinent history Paternal Family History: No pertinent history Smoking Status: Never smoker Physical Exam Vital Signs Temp Pulse Resp BP 97.5 F L 61 18 162/96 H 06/10/20 08:34 06/10/20 08:34 06/10/20 08:34 06/10/20 08:34 General: Alert, Oriented x3, Cooperative, No apparent distress HEENT: Atraumatic, TM's Clear Lungs: Clear to auscultation, Normal air movement Cardiovascular: Regular rate, Regular Rhythm Psych/Mental Status: Normal Affect, Appropriate, Alert and oriented to time, place, person, mood and affect Assessment/Plan Treatment Course Number Number of HBO Treatments 40 Ordered Treatment Course Number 1 Treatment # 29 Chamber # 2 Chamber Type Monoplace Other - Detail Soft Tissue Radionecrosis ( Yes: rectum specify site in comment) Treatment Plan SD (Atmospheric Absolute) 2 Number of Minutes 90 Number of Air Breaks 0
[2020-06-14 08:31] VITALS: BP 140/77; BP 146/76; PULSE 52; PULSE 65; RESP 17; RESP 18; TEMP 35.3; TEMP 35.6
--- NOTE | 2020-06-14 14:07 | PCM.HBO.PN ---
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 Progress: Today's hyperbaric oxygen therapy session represents the 30th session of hyperbaric oxygen therapy of a planned 40 such sessions. Tolerance of hyperbaric oxygen therapy: Hyperbaric oxygen therapy was administered as per the facility's protocol. Hyperbaric oxygen therapy was administered for 90 minutes at 2 sweta with no air breaks. Patient had no complaints or complications. Upon emergence from the hyperbaric chamber, the patient's vital signs remained stable. The patient was discharged in good condition. Past Medical History Chronic Problems (Last Updated 06/03/20 @ 10:[address] Rashida Ribera DO) RIKY (obstructive sleep apnea) (Chronic) Arthritis (Chronic) Morbid obesity with BMI of 40.0-44.9, adult (Chronic) Allergies/Adverse Reactions: Allergies No Known Allergies Allergy (Verified 11/14/18 01:56) Home Medications: Ambulatory Orders Medication Instructions Recorded Acetaminophen [Tylenol Extra 500 mg PO Q6H PRN PRN 04/06/20 Strength] Famotidine/Ca Carb/Mag Hydrox 1 ea PO DAILY PRN PRN 04/06/20 [Pepcid Complete Tablet Chew] Maternal Family History: No pertinent history Paternal Family History: No pertinent history Smoking Status: Never smoker Physical Exam Vital Signs Temp Pulse Resp BP 95.6 F L 65 18 140/77 H 06/14/20 08:31 06/14/20 08:31 06/14/20 08:31 06/14/20 08:31 General: Alert, Oriented x3, Cooperative, No apparent distress, Well nourished HEENT: Atraumatic, PERRLA, EOMI, Normocephalic Lungs: Normal air movement Psych/Mental Status: Normal Affect, Appropriate, Alert and oriented to time, place, person, mood and affect Assessment/Plan The patient appears to be tolerating hyperbaric oxygen therapy well, which will be continued as per the patient's medical plan. Treatment Course Number Number of HBO Treatments 40 Ordered Treatment Course Number 1 Treatment # 30 Chamber # 2 Chamber Type Monoplace Other - Detail Soft Tissue Radionecrosis ( Yes: rectum specify site in comment) Treatment Plan SD (Atmospheric Absolute) 2 Number of Minutes 90 Number of Air Breaks 0
[2020-06-15 09:10] VITALS: BP 140/77; BP 145/85; PULSE 54; PULSE 61; RESP 16; RESP 18; TEMP 35.8; TEMP 35.9
--- NOTE | 2020-06-15 09:52 | PCM.HBO.PN ---
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 Progress: Today's hyperbaric oxygen therapy session represents the 31st session of hyperbaric oxygen therapy of a planned 40 such sessions. Tolerance of hyperbaric oxygen therapy: Hyperbaric oxygen therapy was administered as per the facility's protocol. Hyperbaric oxygen therapy was administered for 90 minutes at 2 sweta with no air breaks. Patient had no complaints or complications. Upon emergence from the hyperbaric chamber, the patient's vital signs remained stable. The patient was discharged in good condition. Past Medical History Chronic Problems (Last Updated 06/03/20 @ 10:[address] Rashida Ribera DO) RIKY (obstructive sleep apnea) (Chronic) Arthritis (Chronic) Morbid obesity with BMI of 40.0-44.9, adult (Chronic) Allergies/Adverse Reactions: Allergies No Known Allergies Allergy (Verified 11/14/18 01:56) Home Medications: Ambulatory Orders Medication Instructions Recorded Acetaminophen [Tylenol Extra 500 mg PO Q6H PRN PRN 04/06/20 Strength] Famotidine/Ca Carb/Mag Hydrox 1 ea PO DAILY PRN PRN 04/06/20 [Pepcid Complete Tablet Chew] Maternal Family History: No pertinent history Paternal Family History: No pertinent history Smoking Status: Never smoker Physical Exam Vital Signs Temp Pulse Resp BP 96.4 F L 61 16 145/85 H 06/15/20 09:10 06/15/20 09:10 06/15/20 09:10 06/15/20 09:10 Assessment/Plan The patient appears to be tolerating hyperbaric oxygen therapy well, which will be continued as per the patient's medical plan. Treatment Course Number Number of HBO Treatments 40 Ordered Treatment Course Number 1 Treatment # 31 Chamber # 2 Chamber Type Monoplace Other - Detail Soft Tissue Radionecrosis ( Yes: rectum specify site in comment) Treatment Plan SD (Atmospheric Absolute) 2 Number of Minutes 90 Number of Air Breaks 0
[2020-06-16 08:27] VITALS: BP 152/86; BP 188/93; PULSE 113; PULSE 65; RESP 16; RESP 20; TEMP 35.6; TEMP 35.9
--- NOTE | 2020-06-16 08:49 | PCM.HBO.PN ---
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 Progress: Today's hyperbaric oxygen therapy session represents the 32nd session of hyperbaric oxygen therapy of a planned 40 such sessions. Tolerance of hyperbaric oxygen therapy: Hyperbaric oxygen therapy was administered as per the facility's protocol. Hyperbaric oxygen therapy was administered for 90 minutes at 2 sweta with no air breaks. Patient had no complaints or complications. Upon emergence from the hyperbaric chamber, the patient's vital signs remained stable. The patient was discharged in good condition. Past Medical History Chronic Problems (Last Updated 06/03/20 @ 10:[address] Rashida Ribera DO) RIKY (obstructive sleep apnea) (Chronic) Arthritis (Chronic) Morbid obesity with BMI of 40.0-44.9, adult (Chronic) Allergies/Adverse Reactions: Allergies No Known Allergies Allergy (Verified 11/14/18 01:56) Home Medications: Ambulatory Orders Medication Instructions Recorded Acetaminophen [Tylenol Extra 500 mg PO Q6H PRN PRN 04/06/20 Strength] Famotidine/Ca Carb/Mag Hydrox 1 ea PO DAILY PRN PRN 04/06/20 [Pepcid Complete Tablet Chew] Maternal Family History: No pertinent history Paternal Family History: No pertinent history Smoking Status: Never smoker Physical Exam Vital Signs Temp Pulse Resp BP 96.6 F L 65 20 H 188/93 H 06/16/20 08:27 06/16/20 08:27 06/16/20 08:27 06/16/20 08:27 General: Alert, Oriented x3, Cooperative, No apparent distress HEENT: Atraumatic, TM's Clear Lungs: Clear to auscultation, Normal air movement Cardiovascular: Regular rate, Regular Rhythm Psych/Mental Status: Normal Affect, Appropriate, Alert and oriented to time, place, person, mood and affect Assessment/Plan Treatment Course Number Number of HBO Treatments 40 Ordered Treatment Course Number 1 Treatment # 32 Chamber # 2 Chamber Type Monoplace Other - Detail Soft Tissue Radionecrosis ( Yes: rectum specify site in comment) Treatment Plan SD (Atmospheric Absolute) 2 Number of Minutes 90 Number of Air Breaks 0
[2020-06-17 08:21] VITALS: BP 155/94; BP 161/94; PULSE 54; PULSE 63; RESP 18; RESP 19; TEMP 35.6; TEMP 36.1
--- NOTE | 2020-06-17 13:43 | PCM.HBO.PN ---
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 Progress: Today's hyperbaric oxygen therapy session represents the 33rd session of hyperbaric oxygen therapy of a planned 40 such sessions. Tolerance of hyperbaric oxygen therapy: Hyperbaric oxygen therapy was administered as per the facility's protocol. Hyperbaric oxygen therapy was administered for 90 minutes at 2 sweta with no air breaks. Patient had no complaints or complications. Upon emergence from the hyperbaric chamber, the patient's vital signs remained stable. The patient was discharged in good condition. Past Medical History Chronic Problems (Last Updated 06/03/20 @ 10:[address] Rashida Ribera DO) RIKY (obstructive sleep apnea) (Chronic) Arthritis (Chronic) Morbid obesity with BMI of 40.0-44.9, adult (Chronic) Allergies/Adverse Reactions: Allergies No Known Allergies Allergy (Verified 11/14/18 01:56) Home Medications: Ambulatory Orders Medication Instructions Recorded Acetaminophen [Tylenol Extra 500 mg PO Q6H PRN PRN 04/06/20 Strength] Famotidine/Ca Carb/Mag Hydrox 1 ea PO DAILY PRN PRN 04/06/20 [Pepcid Complete Tablet Chew] Maternal Family History: No pertinent history Paternal Family History: No pertinent history Smoking Status: Never smoker Physical Exam Vital Signs Temp Pulse Resp BP 96.0 F L 63 19 H 161/94 H 06/17/20 08:21 06/17/20 08:21 06/17/20 08:21 06/17/20 08:21 General: Alert, Oriented x3, Cooperative, No apparent distress Psych/Mental Status: Normal Affect, Appropriate Assessment/Plan The patient appears to be tolerating hyperbaric oxygen therapy well, which will be continued as per the patient's medical plan. Treatment Course Number Number of HBO Treatments 40 Ordered Treatment Course Number 1 Treatment # 33 Chamber # 2 Chamber Type Monoplace Other - Detail Soft Tissue Radionecrosis ( Yes: rectum specify site in comment) Treatment Plan SD (Atmospheric Absolute) 2 Number of Minutes 90 Number of Air Breaks 0
[2020-06-20 08:25] VITALS: BP 149/90; BP 155/91; PULSE 54; PULSE 64; RESP 18; TEMP 35.9; TEMP 36.2
--- NOTE | 2020-06-20 09:18 | PCM.HBO.PN ---
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 Progress: Today's hyperbaric oxygen therapy session represents the 34th session of hyperbaric oxygen therapy of a planned 40 such sessions. Tolerance of hyperbaric oxygen therapy: Hyperbaric oxygen therapy was administered as per the facility's protocol. Hyperbaric oxygen therapy was administered for 90 minutes at 2 sweta with no air breaks. Patient had no complaints or complications. Upon emergence from the hyperbaric chamber, the patient's vital signs remained stable. The patient was discharged in good condition. Past Medical History Chronic Problems (Last Updated 06/03/20 @ 10:[address] Rashida Ribera DO) RIKY (obstructive sleep apnea) (Chronic) Arthritis (Chronic) Morbid obesity with BMI of 40.0-44.9, adult (Chronic) Allergies/Adverse Reactions: Allergies No Known Allergies Allergy (Verified 11/14/18 01:56) Home Medications: Ambulatory Orders Medication Instructions Recorded Acetaminophen [Tylenol Extra 500 mg PO Q6H PRN PRN 04/06/20 Strength] Famotidine/Ca Carb/Mag Hydrox 1 ea PO DAILY PRN PRN 04/06/20 [Pepcid Complete Tablet Chew] Maternal Family History: No pertinent history Paternal Family History: No pertinent history Smoking Status: Never smoker Physical Exam Vital Signs Temp Pulse Resp BP 96.6 F L 64 18 155/91 H 06/20/20 08:25 06/20/20 08:25 06/20/20 08:25 06/20/20 08:25 General: Alert, Oriented x3, Cooperative, No apparent distress HEENT: Atraumatic, TM's Clear Lungs: Clear to auscultation, Normal air movement Cardiovascular: Regular rate, Regular Rhythm Psych/Mental Status: Normal Affect, Appropriate, Alert and oriented to time, place, person, mood and affect Assessment/Plan Treatment Course Number Number of HBO Treatments 40 Ordered Treatment Course Number 1 Treatment # 34 Chamber # 2 Chamber Type Monoplace Other - Detail Soft Tissue Radionecrosis ( Yes: rectum specify site in comment) Treatment Plan SD (Atmospheric Absolute) 2 Number of Minutes 90 Number of Air Breaks 0
[2020-06-21 08:36] VITALS: BP 150/80; BP 152/77; PULSE 54; PULSE 60; RESP 17; TEMP 35.7; TEMP 36
--- NOTE | 2020-06-21 13:08 | PCM.HBO.PN ---
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 Progress: Today's hyperbaric oxygen therapy session represents the 35th session of hyperbaric oxygen therapy of a planned 40 such sessions. Tolerance of hyperbaric oxygen therapy: Hyperbaric oxygen therapy was administered as per the facility's protocol. Hyperbaric oxygen therapy was administered for 90 minutes at 2 sweta with no air breaks. Patient had no complaints or complications. Upon emergence from the hyperbaric chamber, the patient's vital signs remained stable. The patient was discharged in good condition. Past Medical History Chronic Problems (Last Updated 06/03/20 @ 10:[address] Rashida Ribera DO) RIKY (obstructive sleep apnea) (Chronic) Arthritis (Chronic) Morbid obesity with BMI of 40.0-44.9, adult (Chronic) Allergies/Adverse Reactions: Allergies No Known Allergies Allergy (Verified 11/14/18 01:56) Home Medications: Ambulatory Orders Medication Instructions Recorded Acetaminophen [Tylenol Extra 500 mg PO Q6H PRN PRN 04/06/20 Strength] Famotidine/Ca Carb/Mag Hydrox 1 ea PO DAILY PRN PRN 04/06/20 [Pepcid Complete Tablet Chew] Maternal Family History: No pertinent history Paternal Family History: No pertinent history Smoking Status: Never smoker Physical Exam Vital Signs Temp Pulse Resp BP 96.2 F L 60 17 150/80 H 06/21/20 08:36 06/21/20 08:36 06/21/20 08:36 06/21/20 08:36 General: Alert, Oriented x3, Cooperative, No apparent distress, Well developed, Well nourished HEENT: Atraumatic, PERRLA, EOMI, Normocephalic Lungs: Normal air movement Psych/Mental Status: Normal Affect, Appropriate, Alert and oriented to time, place, person, mood and affect Assessment/Plan The patient appears to be tolerating hyperbaric oxygen therapy well, which will be continued as per the patient's medical plan. Treatment Course Number Number of HBO Treatments 40 Ordered Treatment Course Number 1 Treatment # 35 Chamber # 2 Chamber Type Monoplace Other - Detail Soft Tissue Radionecrosis ( Yes: rectum specify site in comment) Treatment Plan SD (Atmospheric Absolute) 2 Number of Minutes 90 Number of Air Breaks 0
[2020-06-22 08:38] VITALS: BP 144/75; BP 153/96; PULSE 53; PULSE 65; RESP 16; RESP 17; TEMP 36.1
--- NOTE | 2020-06-22 10:46 | PCM.HBO.PN ---
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 Progress: Today's hyperbaric oxygen therapy session represents the 36th session of hyperbaric oxygen therapy of a planned 40 such sessions. Tolerance of hyperbaric oxygen therapy: Hyperbaric oxygen therapy was administered as per the facility's protocol. Hyperbaric oxygen therapy was administered for 90 minutes at 2 sweta with no air breaks. Patient had no complaints or complications. Upon emergence from the hyperbaric chamber, the patient's vital signs remained stable. The patient was discharged in good condition. Past Medical History Chronic Problems (Last Updated 06/03/20 @ 10:[address] Rashida Ribera DO) RIKY (obstructive sleep apnea) (Chronic) Arthritis (Chronic) Morbid obesity with BMI of 40.0-44.9, adult (Chronic) Allergies/Adverse Reactions: Allergies No Known Allergies Allergy (Verified 11/14/18 01:56) Home Medications: Ambulatory Orders Medication Instructions Recorded Acetaminophen [Tylenol Extra 500 mg PO Q6H PRN PRN 04/06/20 Strength] Famotidine/Ca Carb/Mag Hydrox 1 ea PO DAILY PRN PRN 04/06/20 [Pepcid Complete Tablet Chew] Maternal Family History: No pertinent history Paternal Family History: No pertinent history Smoking Status: Never smoker Physical Exam Vital Signs Temp Pulse Resp BP 97.0 F L 65 17 153/96 H 06/22/20 08:38 06/22/20 08:38 06/22/20 08:38 06/22/20 08:38 Assessment/Plan The patient appears to be tolerating hyperbaric oxygen therapy well, which will be continued as per the patient's medical plan. Treatment Course Number Number of HBO Treatments 40 Ordered Treatment Course Number 1 Treatment # 36 Chamber # 2 Chamber Type Monoplace Other - Detail Soft Tissue Radionecrosis ( Yes: rectum specify site in comment) Treatment Plan SD (Atmospheric Absolute) 2 Number of Minutes 90 Number of Air Breaks 0
[2020-06-23 09:18] VITALS: BP 126/78; BP 159/71; PULSE 51; PULSE 64; RESP 16; RESP 17; TEMP 36.1
--- NOTE | 2020-06-23 11:23 | PCM.HBO.PN ---
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 Progress: Today's hyperbaric oxygen therapy session represents the 37th session of hyperbaric oxygen therapy of a planned 40 such sessions. Tolerance of hyperbaric oxygen therapy: Hyperbaric oxygen therapy was administered as per the facility's protocol. Hyperbaric oxygen therapy was administered for 90 minutes at 2 sweta with no air breaks. Patient had no complaints or complications. Upon emergence from the hyperbaric chamber, the patient's vital signs remained stable. The patient was discharged in good condition. Past Medical History Chronic Problems (Last Updated 06/03/20 @ 10:[address] Rashida Ribera DO) RIKY (obstructive sleep apnea) (Chronic) Arthritis (Chronic) Morbid obesity with BMI of 40.0-44.9, adult (Chronic) Allergies/Adverse Reactions: Allergies No Known Allergies Allergy (Verified 11/14/18 01:56) Home Medications: Ambulatory Orders Medication Instructions Recorded Acetaminophen [Tylenol Extra 500 mg PO Q6H PRN PRN 04/06/20 Strength] Famotidine/Ca Carb/Mag Hydrox 1 ea PO DAILY PRN PRN 04/06/20 [Pepcid Complete Tablet Chew] Maternal Family History: No pertinent history Paternal Family History: No pertinent history Smoking Status: Never smoker Physical Exam Vital Signs Temp Pulse Resp BP 96.9 F L 64 17 126/78 H 06/23/20 09:18 06/23/20 09:18 06/23/20 09:18 06/23/20 09:18 General: Alert, Oriented x3, Cooperative, No apparent distress HEENT: Atraumatic, Normocephalic, TM's Clear Lungs: Normal air movement Psych/Mental Status: Normal Affect Assessment/Plan The patient appears to be tolerating hyperbaric oxygen therapy well, which will be continued as per the patient's medical plan. Treatment Course Number Number of HBO Treatments 40 Ordered Treatment Course Number 1 Treatment # 37 Chamber # 2 Chamber Type Monoplace Other - Detail Soft Tissue Radionecrosis ( Yes: rectum specify site in comment) Treatment Plan SD (Atmospheric Absolute) 2 Number of Minutes 90 Number of Air Breaks 0 - [facility] Procedures HBO Supervision: [id number] Hyperbaric Oxygen; supervision
[2020-06-24 09:28] VITALS: BP 129/63; BP 136/69; PULSE 52; PULSE 65; RESP 18; TEMP 35.7; TEMP 36.2
--- NOTE | 2020-06-24 13:25 | PCM.HBO.PN ---
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 Progress: Today's hyperbaric oxygen therapy session represents the 38th session of hyperbaric oxygen therapy of a planned 40 such sessions. Tolerance of hyperbaric oxygen therapy: Hyperbaric oxygen therapy was administered as per the facility's protocol. Hyperbaric oxygen therapy was administered for 90 minutes at 2 sweta with no air breaks. Patient had no complaints or complications. Upon emergence from the hyperbaric chamber, the patient's vital signs remained stable. The patient was discharged in good condition. Past Medical History Chronic Problems (Last Updated 06/03/20 @ 10:[address] Rashida Ribera DO) RIKY (obstructive sleep apnea) (Chronic) Arthritis (Chronic) Morbid obesity with BMI of 40.0-44.9, adult (Chronic) Allergies/Adverse Reactions: Allergies No Known Allergies Allergy (Verified 11/14/18 01:56) Home Medications: Ambulatory Orders Medication Instructions Recorded Acetaminophen [Tylenol Extra 500 mg PO Q6H PRN PRN 04/06/20 Strength] Famotidine/Ca Carb/Mag Hydrox 1 ea PO DAILY PRN PRN 04/06/20 [Pepcid Complete Tablet Chew] Maternal Family History: No pertinent history Paternal Family History: No pertinent history Lives: Alone Smoking Status: Never smoker Tobacco Use: Non-smoker Alcohol: None Drugs: None Physical Exam Vital Signs Temp Pulse Resp BP 96.2 F L 65 18 129/63 H 06/24/20 09:28 06/24/20 09:28 06/24/20 09:28 06/24/20 09:28 General: Alert, Oriented x3, Cooperative, No apparent distress Psych/Mental Status: Normal Affect, Appropriate Assessment/Plan The patient appears to be tolerating hyperbaric oxygen therapy well, which will be continued as per the patient's medical plan. Treatment Course Number Number of HBO Treatments 40 Ordered Treatment Course Number 1 Treatment # 38 Chamber # 2 Chamber Type Monoplace Other - Detail Soft Tissue Radionecrosis ( Yes: rectum specify site in comment) Treatment Plan SD (Atmospheric Absolute) 2 Number of Minutes 90 Number of Air Breaks 0
--- NOTE | 2020-06-27 08:46 | PCM.HBO.PN ---
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 Progress: Today's hyperbaric oxygen therapy session represents the 39th session of hyperbaric oxygen therapy of a planned 40 such sessions. Tolerance of hyperbaric oxygen therapy: Hyperbaric oxygen therapy was administered as per the facility's protocol. Hyperbaric oxygen therapy was administered for 90 minutes at 2 sweta with no air breaks. Patient had no complaints or complications. Upon emergence from the hyperbaric chamber, the patient's vital signs remained stable. The patient was discharged in good condition. Past Medical History Chronic Problems (Last Updated 06/03/20 @ 10:[address] Rashida Ribera DO) RIKY (obstructive sleep apnea) (Chronic) Arthritis (Chronic) Morbid obesity with BMI of 40.0-44.9, adult (Chronic) Allergies/Adverse Reactions: Allergies No Known Allergies Allergy (Verified 11/14/18 01:56) Home Medications: Ambulatory Orders Medication Instructions Recorded Acetaminophen [Tylenol Extra 500 mg PO Q6H PRN PRN 04/06/20 Strength] Famotidine/Ca Carb/Mag Hydrox 1 ea PO DAILY PRN PRN 04/06/20 [Pepcid Complete Tablet Chew] Maternal Family History: No pertinent history Paternal Family History: No pertinent history Lives: Alone Smoking Status: Never smoker Tobacco Use: Non-smoker Alcohol: None Drugs: None Physical Exam Vital Signs Temp Pulse Resp BP 96.2 F L 65 18 129/63 H 06/24/20 09:28 06/24/20 09:28 06/24/20 09:28 06/24/20 09:28 General: Alert, Oriented x3, Cooperative, No apparent distress HEENT: Atraumatic, TM's Clear Lungs: Clear to auscultation, Normal air movement Cardiovascular: Regular rate, Regular Rhythm Psych/Mental Status: Normal Affect, Appropriate, Alert and oriented to time, place, person, mood and affect Assessment/Plan Treatment Course Number Number of HBO Treatments 40 Ordered Treatment Course Number 1 Treatment # 39 Chamber # 2 Chamber Type Monoplace Other - Detail Soft Tissue Radionecrosis ( Yes: rectum specify site in comment) Treatment Plan SD (Atmospheric Absolute) 2 Number of Minutes 90 Number of Air Breaks 0
[2020-06-27 09:04] VITALS: BP 147/73; BP 154/79; PULSE 54; PULSE 63; RESP 16; RESP 17; TEMP 36.2; TEMP 36.3
[2020-06-28 08:29] VITALS: BP 144/94; BP 189/60; PULSE 56; PULSE 61; RESP 18; TEMP 36.1; TEMP 36.2
--- NOTE | 2020-06-28 13:48 | PCM.HBO.PN ---
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 Progress: Today's hyperbaric oxygen therapy session represents the 40th session of hyperbaric oxygen therapy of a planned 40 such sessions. Tolerance of hyperbaric oxygen therapy: Hyperbaric oxygen therapy was administered as per the facility's protocol. Hyperbaric oxygen therapy was administered for 90 minutes at 2 sweta with no air breaks. Patient had no complaints or complications. Upon emergence from the hyperbaric chamber, the patient's vital signs remained stable. The patient was discharged in good condition. Past Medical History Chronic Problems (Last Updated 06/03/20 @ 10:[address] Rashida Ribera DO) RIKY (obstructive sleep apnea) (Chronic) Arthritis (Chronic) Morbid obesity with BMI of 40.0-44.9, adult (Chronic) Allergies/Adverse Reactions: Allergies No Known Allergies Allergy (Verified 11/14/18 01:56) Home Medications: Ambulatory Orders Medication Instructions Recorded Acetaminophen [Tylenol Extra 500 mg PO Q6H PRN PRN 04/06/20 Strength] Famotidine/Ca Carb/Mag Hydrox 1 ea PO DAILY PRN PRN 04/06/20 [Pepcid Complete Tablet Chew] Maternal Family History: No pertinent history Paternal Family History: No pertinent history Lives: Alone Smoking Status: Never smoker Tobacco Use: Non-smoker Alcohol: None Drugs: None Physical Exam Vital Signs Temp Pulse Resp BP 97.2 F L 61 18 189/60 H 06/28/20 08:29 06/28/20 08:29 06/28/20 08:29 06/28/20 08:29 General: Alert, Oriented x3, Cooperative, No apparent distress, Well developed, Well nourished HEENT: Atraumatic, PERRLA, EOMI, Normocephalic Lungs: Normal air movement Psych/Mental Status: Normal Affect, Appropriate, Alert and oriented to time, place, person, mood and affect Assessment/Plan The patient appears to be tolerating hyperbaric oxygen therapy well, which will be continued as per the patient's medical plan. Treatment Course Number Number of HBO Treatments 40 Ordered Treatment Course Number 1 Treatment # 40 Chamber # 2 Chamber Type Monoplace Other - Detail Soft Tissue Radionecrosis ( Yes: rectum specify site in comment) Treatment Plan SD (Atmospheric Absolute) 2 Number of Minutes 90 Number of Air Breaks 0
== END 2020-07-07 23:59 ==
LOC: WC 08:00
PROVIDERS: PCP Family Medicine; Referring Provider Urology; Visit Provider Family Medicine
DX: L59.8 Other specified disorders of the skin and subcutaneous tissue related to radiation (principal); Y84.2 Radiological procedure and radiotherapy as the cause of abnormal reaction of the patient, or of later complication, without mention of misadventure at the time of the procedure; G47.33 Obstructive sleep apnea (adult) (pediatric); E66.01 Morbid (severe) obesity due to excess calories; Z68.41 Body mass index [BMI] 40.0-44.9, adult
CPT/HCPCS: 99183; G0277

== ENCOUNTER 2021-10-09 10:06 | Outpatient (CLI) | payer MEDICARE, SELFPAY ==
[2021-10-09 11:21] LABS: Hematocrit 45.9 % (40-54); Hemoglobin 15.1 g/dL (13.0-16.5); Mean Corp Hgb Conc 32.9 g/dL (32-36); Mean Corpuscular Hgb 28.9 pg (27.0-32.0); Mean Corpuscular Volume 87.8 fL (80-94); Mean Platelet Vol. 9.8 fl (6.2-12.0); Platelet Count 254 K/mm3 (150-450); RBC Distribution Width CV 13.9 % (11.6-14.6); RBC Distribution Width SD 44.6 fl (35.1-43.9); Red Blood Count 5.23 M/mm3 (4.6-6.2); White Blood Count 9.3 K/mm3 (4.4-11.0)
[2021-10-09 12:10] LABS: ALB/GLOB Ratio 0.9 RATIO (0.9-2.4); AST(SGOT) 17 U/L (15-37); Alanine Aminotransfer ALT/SGPT 21 U/L (16-61); Albumin, Serum 3.3 g/dL (3.2-5.0); Alkaline Phosphatase 76 U/L (45-117); Anion Gap 6 (5-15); BUN 10 mg/dL (7-18); BUN/Creat Ratio 9.3 RATIO (10-20); Calcium,Total 8.8 mg/dL (8.5-10.1); Chloride 108 mmol/L (98-107); Cholesterol 179 mg/dL (200); Creatinine, Serum 1.07 mg/dL (0.70-1.30); EST Glomerular Filtration Rate 73 mL/min (>60); Est Glom Filt Rate - Afr Amer 88 mL/min (>60); Globulin 3.6 g/dL (2.2-4.2); Glucose 99 mg/dL (74-106); High Density Lipoprotein 41 mg/dL; PSA,Total- Diagnostic 1.06 ng/mL (0.0-4.0); Protein, Total 6.9 g/dL (6.4-8.2); Sodium Level 144 mmol/L (136-145); Thyroid Stim Hormone (TSH) 1.38 uIU/mL (0.358-3.74); Triglycerides 176 mg/dL; Very Low Density Lipoprotein 35 mg/dL (5-40)
== END 2021-10-09 23:59 | disposition home or self-care (01) ==
LOC: LAB 10:08
PROVIDERS: PCP Family Medicine; Visit Provider Urology
DX: I10 Essential (primary) hypertension (principal); E66.01 Morbid (severe) obesity due to excess calories; Z12.5 Encounter for screening for malignant neoplasm of prostate; R19.7 Diarrhea, unspecified; R97.20 Elevated prostate specific antigen [PSA]
CPT/HCPCS: 36415; 80053; 80061; 84153; 84443; 85027